=== PATIENT | female | born 1950 | race Caucasian/White ===

== ENCOUNTER 2022-05-25 14:08 | Emergency (ER) | payer MEDICARE, OTHER, SELFPAY ==
[2022-05-25] VITALS (24 sets, daily range): BP systolic 105–125; BP diastolic 74–84; PULSE 81–110; RESP 16–18; TEMP 36.3; O2SAT 93–96; BMI 19.3
--- NOTE | 2022-05-25 14:21 | ED.GENADULT ---
HPI - General Adult General Time Seen by Provider: 14:21 Date Seen: 05/25/22 Chief complaint: Weakness Stated complaint: Post Cardiac Ablation Slow Pulse Light Headed Time Seen by Provider: 05/25/22 14:21 Source: patient and RN notes reviewed Mode of arrival: ambulatory Limitations: no limitations History of Present Illness HPI narrative: Patient is a 71-year-old female coming in feeling lightheaded. She took blood pressures at home today and they were somewhat lower and her pulse was low per her report. At 9:00 a.m. her blood pressure is 110/75, pulse 61 at noon she was 93/72, pulse 75. She was putting groceries away, doing some bending over and felt lightheaded. At the time she also felt short of breath. She has underlying atrial fibrillation and she states they ran out of medications to try to keep her in sinus rhythm. They attempted a cardioversion on May 05. When she returned on the to have an ablation done, she was already back into atrial fibrillation. She has not missed any doses of Eliquis. She has had no chest pain. Dr. Grider did her ablation. On arrival here, she is in sinus tachycardia, just above 100. She is not feeling short of breath or lightheaded at this time. Related Data Home Medications Medication Instructions Recorded Confirmed apixaban 5 mg tablet (Eliquis) mg 05/25/22 dronedarone 400 mg tablet (Multaq) mg 05/25/22 furosemide 20 mg tablet mg 05/25/22 pantoprazole 40 mg tablet,delayed mg PO 05/25/22 release Allergies Allergy/AdvReac Type Severity Reaction Status Date / Time iodine Allergy Verified 05/25/22 14:57 shellfish derived Allergy Verified 05/25/22 14:57 Review of Systems Status of ROS: Reports: 10 or more systems reviewed and unremarkable except as noted in History and below [facility] Medical History (Updated 05/25/22 @ 16:37 by Karlee Donohue MD) Atrial fibrillation status post cardioversion Surgical History (Updated 05/25/22 @ 16:37 by Karlee Donohue MD) S/P ablation of atrial fibrillation Social History Smoking Status: Unknown if ever smoked Do you use any of these nicotine containing products: None How often do you have a drink containing alcohol: never AUDIT-C Alcohol total score: 0 Non-prescribed substance use: denies use service: No Exam Const: Vital Signs, click to edit/add: Vital Signs - 24 hr 05/25/22 14:22 05/25/22 14:20 05/25/22 14:53 Temperature 97.3 F L Pulse Rate Pulse Rate [Pulse Oximeter] 103 H 104 H Respiratory Rate 18 16 Blood Pressure Blood Pressure [Le ft Upper Arm] 125/78 117/80 Pulse Oximetry 95 95 95 Oxygen Delivery Me thod Room Air Room Air 05/25/22 14:22 05/25/22 14:14 05/25/22 14:15 Temperature Pulse Rate 101 H 101 H Pulse Rate [Pulse Oximeter] Respiratory Rate Blood Pressure 125/78 Blood Pressure [Le ft Upper Arm] Pulse Oximetry 94 96 96 Oxygen Delivery Me thod 05/25/22 14:42 05/25/22 14:43 05/25/22 14:45 Temperature Pulse Rate 103 H 110 H Pulse Rate [Pulse Oximeter] Respiratory Rate Blood Pressure 116/74 Blood Pressure [Le ft Upper Arm] Pulse Oximetry 93 94 Oxygen Delivery Me thod 05/25/22 14:52 05/25/22 15:00 05/25/22 15:01 Temperature Pulse Rate 107 H 105 H 105 H Pulse Rate [Pulse Oximeter] Respiratory Rate Blood Pressure 117/80 115/80 Blood Pressure [Le ft Upper Arm] Pulse Oximetry 94 93 94 Oxygen Delivery Me thod 05/25/22 15:15 05/25/22 15:16 Temperature Pulse Rate 105 H 107 H Pulse Rate [Pulse Oximeter] Respiratory Rate Blood Pressure 105/81 Blood Pressure [Le ft Upper Arm] Pulse Oximetry 93 93 Oxygen Delivery Me thod Patient seen shortly after arrival, talking to her her heart rate is right around 100, I ask her she is feeling lightheaded currently in she feels it has resolved some. Documenting provider has reviewed patient's vital signs: yes Common normals: no apparent distress, average body habitus, oriented x3, no limitations, healthy appearing, alert and well nourished General appearance: cooperative, comfortable, well kempt and well developed HENMT: Common normals: normocephalic, head/scalp atraumatic and hearing grossly normal bilaterally Head and scalp: normocephalic and atraumatic Eye: Common normals: PERRL, EOMs intact bilaterally, conjunctivae normal and no scleral icterus Conjunctiva: conjunctiva(e) normal Pupil: PERRL Neck & C-Spine: Common normals: full ROM, no lymphadenopathy, supple, no meningeal signs, no JVD and thyroid normal Thyroid: thyroid normal Resp: Common normals: normal respiratory effort (Sits up easily for me to listen to her lungs.), no retractions, no use of accessory muscles and clear to auscultation bilaterally Auscultation: clear to auscultation bilaterally Cardio: Common normals: no JVD, regular rhythm, S1 normal heart sound, S2 normal heart sound, no gallops, no clicks and no murmurs Rate: tachycardic Rhythm: regular rhythm Heart sounds: S1 normal and S2 normal GI: Common normals: Normal to inspection, nondistended, normoactive bowel sounds present, soft to palpation, non-tender, no hepatosplenomegaly and no masses Palpation: soft and no hepatosplenomegaly Extremity: Other: No pitting edema, calves nontender. Neuro: Common normals: oriented x3, moves all extremities and gait normal Sensorium/orientation: alert Meningeal signs: no meningeal signs Speech: speech normal Psych: Appearance: well kempt Course Course Hospital Course: Patient has not missed any doses of Eliquis, has been on anticoagulants through this whole procedure, thus really am not concerned about any thromboembolic disease. Will have her on cardiac monitoring and pulse oximetry. She is just very mild sinus tachycardia. Will look at baseline labs. Have opted to do a troponin knowing that it still might be somewhat elevated albeit expected to be minimally so after the procedures. These were about 20 days ago. Will get portable chest x-ray but do not appreciate any congestive heart failure clinically. Consultations Consultation #1: Spoke with Dr. Osullivan at [facility] regarding patient's care. He stated 1 thing he would be concerned about would be a pericardial effusion, this is 1 complication that can happen after this procedure. He states it typically happens immediately but if we were comfortable, if we could do a point of care ultrasound. Reviewed with him that I certainly was comfortable doing so. He stated if she was otherwise unchanged, no pericardial effusion, discharged to home and they will contact her via phone call for follow-up tomorrow. Time: 15:26 Vital Signs Vital signs: Initial Vital Signs Pulse Rate 101 H 02/28/23 14:14 Blood Pressure 125/78 05/25/22 14:14 Blood Pressure Mean 93 05/25/22 14:14 Pulse Oximetry 96 05/25/22 14:14 Vital Signs Pulse Rate 101 H 05/25/22 14:14 Blood Pressure 125/78 05/25/22 14:14 Pulse Oximetry 96 05/25/22 14:14 Temperature 97.3 F L 05/25/22 14:22 Pulse Rate 107 H 05/25/22 15:16 Respiratory Rate 16 05/25/22 14:53 Blood Pressure 105/81 05/25/22 15:16 Pulse Oximetry 93 05/25/22 15:16 Oxygen Delivery Method 05/25/22 14:53 Medical Decision Making Lab Data Lab results reviewed: Yes I reviewed the patient's lab results Labs: Lab Results 05/25/22 05/25/22 Range/Units 14:23 14:23 WBC 5.05 (4.50-11.00) K/uL RBC 4.22 (4.00-5.20) m/uL Hgb 12.4 (12.0-16.0) gm/dL Hct 37.7 (33.0-51.0) % MCV 89 (80-100) fL MCH 29 (26-34) pg MCHC 33 (32-36) gm/dL RDW Coeff of Kalina 13.1 (11.5-15.5) % Plt Count 258 (140-440) K/uL Neut % (Auto) 75.1 H (42.0-72.0) % Lymph % (Auto) 16.8 L (20-44) % [place] % (Auto) 6.5 (0.0-11.0) % Eos % (Auto) 1.2 (0.0-7.0) % Baso % (Auto) 0.2 (0.0-3.0) % Neut # (Auto) 3.80 (1.7-7.0) K/uL Lymph # (Auto) 0.80 L (0.90-2.90) K/uL [place] # (Auto) 0.30 (0.00-0.90) K/UL Eos # (Auto) 0.06 (0.00-0.50) K/uL Baso # (Auto) 0.01 (0.00-0.30) K/uL Sodium 137 (135-149) mmol/L Potassium 4.0 (3.6-5.1) mmol/L Chloride 108 (96-114) mmol/L Carbon Dioxide 23 (20-32) mmol/L BUN 19 (7-30) mg/dL Creatinine 1.0 (0.5-1.5) mg/dL Estimated Creat Clear 40.86 Estimated GFR 61 ml/min Glucose 140 H (60-115) mg/dL Calcium 8.5 (8.4-10.6) mg/dL Magnesium 2.0 (1.5-2.6) mg/dL Total Bilirubin 0.6 (0.1-1.5) mg/dL AST 27 (12-35) U/L ALT 19 (4-35) U/L Alkaline Phosphatase 48 (40-150) U/L Troponin I < 0.01 L (0.01-0.04) ng/mL Total Protein 6.0 (6.0-8.3) g/dL Albumin 3.7 (3.3-5.0) g/dL Imaging Data Chest x-ray: Attestation: I have reviewed the pertinent imaging results. My impression: No acute congestive heart failure, cardiomegaly. Radiologist's impression: Patient: KATIE ANAYA Facility:?[facility] Patient ID:?[id number] Site Patient ID:?[id number]. Site :?[id number] Study:?XRay Chest -05/25/2022 2:54:08 PM Ordering Physician:?Charanjit Desir Final Report: INDICATION: [id number]. TECHNIQUE: Chest 1 views. COMPARISON: None. FINDINGS: Cardiovascular and mediastinum: Cardiomegaly. Prominent vasculature. Sternotomy wires. Lungs and pleural spaces: Lungs are clear. No sign of infiltrate or mass. No sign of pleural effusion. No pneumothorax. Bones and soft tissues: No significant findings. IMPRESSION: Cardiomegaly with somewhat water bottle appearance. Consider echocardiogram if pericardial effusion is of concern. Dictated by James Dubon MD @ 05/25/2022 3:35:39 PM (Electronic Signature) ECG Data Attestation: I personally reviewed and interpreted this ECG as follows: (Sinus tachycardia, 103 beats per minute. Incomplete right bundle branch block. PVCs seen. No definitive ischemia, nonspecific T-wave changes.) Prior ECG tracings: not available for review Critical Care Time Critical Care Time Critical Care Time: No Discharge Plan Discharge Clinical Impression: Light-headedness, Status post ablation of atrial fibrillation Condition: Stable Instructions: Lightheadedness (ED) Additional Instructions: Need to stay on current medications. The electrophysiology team should be contacting you tomorrow to do a phone follow-up. In the interim if you should have worsening symptoms, increasing shortness of breath, chest pain, significant change in your heart rate above 110 or below 60, feel like you are going to pass out, please seek re-evaluation. Prescriptions: No Action pantoprazole 40 mg tablet,delayed release (DR/EC) PO furosemide 20 mg tablet Multaq 400 mg tablet Eliquis 5 mg tablet Stand Alone Forms: [facility] Info Instructions Procedures Ultrasound Cardiac exam #1: Anatomical areas examined: parasternal long and parasternal short Indications: other Exam type: limited transthoracic echocardiogram Findings: other (Good contractility, no pericardial effusion seen. Images saved.) Impression: negative exam
--- NOTE | 2022-05-25 14:22 | CRLHL7_ITS ---
For Patients: As a result of the Century Cures Act, medical imaging exams and procedure reports are released immediately into your electronic medical record. You may view this report before your referring provider. If you have questions, please contact your health care provider. INDICATION: [id number]. TECHNIQUE: Chest 1 views. COMPARISON: None. FINDINGS: Cardiovascular and mediastinum: Cardiomegaly. Prominent vasculature. Sternotomy wires. Lungs and pleural spaces: Lungs are clear. No sign of infiltrate or mass. No sign of pleural effusion. No pneumothorax. Bones and soft tissues: No significant findings. IMPRESSION: Cardiomegaly with somewhat water bottle appearance. Consider echocardiogram if pericardial effusion is of concern. Dictated by James Dubon MD @ 05/25/2022 3:35:39 PM (Electronically Signed)
[2022-05-25 14:44] LABS: Basophils Absolute Auto 0.01 K/uL (0.00-0.30); Basophils Percent Auto 0.2 % (0.0-3.0); Eosinophils Absolute Auto 0.06 K/uL (0.00-0.50); Eosinophils Percent Auto 1.2 % (0.0-7.0); Hematocrit 37.7 % (33.0-51.0); Hemoglobin* 12.4 gm/dL (12.0-16.0); Immature Granulocytes Abs Auto 0.01 K/uL (0.00-0.30); Immature Granulocytes Pct Auto 0.2 %; Lymphocytes Percent Auto 16.8 % (20-44); Mean Corpuscular HGB Conc 33 gm/dL (32-36); Mean Corpuscular Hemoglobin 29 pg (26-34); Mean Corpuscular Volume 89 fL (80-100); Monocytes Percent Auto 6.5 % (0.0-11.0); Neutrophils Percent Auto 75.1 % (42.0-72.0); Platelet Count* 258 K/uL (140-440); RDW Coefficient of Variation % 13.1 % (11.5-15.5); Red Blood Count 4.22 m/uL (4.00-5.20); White Blood Count* 5.05 K/uL (4.50-11.00)
--- NOTE | 2022-05-25 14:46 | PC.NURSE ---
pt states she had cardioversion on 05/05, ablation on 05/06 at [facility]. Today was out running errands with and began to feel lightheaded, generalized weakness. Today at 0900 bp 110/75 p61, at 1200 bp 90/72 p 75. Called nurse line and instructed to come into ED for further evaluation. Pt is on Eliquis and baby asa, took this morning. Denies chest pain or shortness of breath.
[2022-05-25 14:47] LABS: Slide Review Reflex No
[2022-05-25 15:13] LABS: Albumin* 3.7 g/dL (3.3-5.0); Chloride* 108 mmol/L (96-114); Sodium* 137 mmol/L (135-149)
[2022-05-25 15:16] LABS: Alkaline Phosphatase* 48 U/L (40-150); Aspartate Amino Transferase* 27 U/L (12-35); Bilirubin Total* 0.6 mg/dL (0.1-1.5); Blood Urea Nitrogen* 19 mg/dL (7-30); Carbon Dioxide* 23 mmol/L (20-32); Est. Creatinine Clearance* 40.86; Estimated Glomerular Filt Rate 61 ml/min; Glucose* 140 mg/dL (60-115)
[2022-05-25 15:17] LABS: Alanine Aminotransferase* 19 U/L (4-35); Calcium* 8.5 mg/dL (8.4-10.6)
[2022-05-25 15:41] LABS: Troponin I* < 0.01 ng/mL (0.01-0.04)
== END 2022-05-25 16:51 | disposition home or self-care (01) ==
PROVIDERS: Emergency Provider Family Medicine; PCP Family Medicine
DX: R42 Dizziness and giddiness (principal); Z98.890 Other specified postprocedural states
CPT/HCPCS: 36415; 71045; 76604; 76705; 80053; 83735; 84484; 85025; 93005; 93308; 94761; 99284; 99285

== ENCOUNTER 2024-01-01 11:32 | Outpatient (CLI) | payer MEDICARE, OTHER, SELFPAY | END 2024-01-01 11:33 | disposition home or self-care (01) | LOC: AMB 01-05 03:41 | PROVIDERS: PCP Family Medicine; Visit Provider Student in an Organized Health Care Education/Training Program | DX: R55 Syncope and collapse (principal) | CPT/HCPCS: A0425; A0427 ==

== ENCOUNTER 2024-01-01 12:00 | Emergency (ER) | payer MEDICARE, OTHER, SELFPAY ==
[2024-01-01] VITALS (30 sets, daily range): BP systolic 109–123; BP diastolic 65–84; PULSE 58–77; RESP 18; TEMP 36.6; O2SAT 93–99; BMI 19.5
--- NOTE | 2024-01-01 12:23 | CRLHL7_ITS ---
For Patients: As a result of the Cures Act, medical imaging exams and procedure reports are released immediately into your electronic medical record. You may view this report before your referring provider. If you have questions, please contact your health care provider. INDICATION: Syncope. Fall. COMPARISON: 05/25/2022 TECHNIQUE: 2 views. FINDINGS: Medical Devices: None. Lung Volumes: Adequate inspiration. No significant atelectasis. Lungs: Clear lungs. Pleura and Pleural spaces: No significant pleural effusion. No pneumothorax. Mediastinum: Unchanged enlarged cardiac silhouette. Differential diagnostic considerations include cardiomegaly and/or pericardial effusion as suggested on the prior exam. Bony Thorax and Soft Tissues: No significant incidental findings. Median sternotomy. IMPRESSION: 1. No acute findings. 2. Unchanged enlarged cardiac silhouette. Differential diagnostic considerations include cardiomegaly and/or pericardial effusion as suggested on the prior exam. Dictated by Elvin Culp MD @ 01/01/2024 1:10:36 PM (Electronically Signed)
--- NOTE | 2024-01-01 12:23 | CRLHL7_ITS ---
For Patients: As a result of the Century Cures Act, medical imaging exams and procedure reports are released immediately into your electronic medical record. You may view this report before your referring provider. If you have questions, please contact your health care provider. INDICATION: Syncope. Fall. COMPARISON: None available. TECHNIQUE: CT of the cervical spine without intravenous contrast. Please note that all CT scans at this facility use dose modulation, iterative reconstruction, and/or weight-based dosing when appropriate to reduce radiation dose to as low as reasonably achievable. FINDINGS: Alignment: Minimal, grade 1, anterolisthesis of C3 on C4 and C4 on C5. No significant spondylolisthesis, widening of the intervertebral disc spaces, interfacetal joints or interspinous distances. Vertebrae: Vertebral bodies, pedicles, laminae, articular, transverse and spinous processes are intact. Moderate disc degeneration at C5-C6. Mild bilateral articular pillar osteoarthrosis. Asymmetrical right uncovertebral osteoarthrosis at C5-C6. Soft Tissues: No perivertebral edema or hemorrhage. Extraspinal Anatomy: No significant findings. IMPRESSION: No acute traumatic injury is identified. Please note that all CT scans at this facility use dose modulation, iterative reconstruction, and/or weight-based dosing when appropriate to reduce radiation dose to as low as reasonably achievable. Dictated by Elvin Culp MD @ 01/01/2024 1:15:32 PM (Electronically Signed)
--- NOTE | 2024-01-01 12:23 | CRLHL7_ITS ---
For Patients: As a result of the Century Cures Act, medical imaging exams and procedure reports are released immediately into your electronic medical record. You may view this report before your referring provider. If you have questions, please contact your health care provider. INDICATION: Syncope. Fall. COMPARISON: None available. TECHNIQUE: CT of the head without intravenous contrast. Please note that all CT scans at this facility use dose modulation, iterative reconstruction, and/or weight-based dosing when appropriate to reduce radiation dose to as low as reasonably achievable. FINDINGS: The brain is normal in attenuation with preserved arellano-white matter differentiation. No hydrocephalus. No mass or mass effect. No intracranial hemorrhage. Intact skull base and cranial vault. Visualized orbits are without significant incidental findings. Visualized paranasal sinuses and mastoid air cells are clear. The anterior nasal septum is deviated rightward. IMPRESSION: No acute traumatic injury is identified. No significant incidental findings. Please note that all CT scans at this facility use dose modulation, iterative reconstruction, and/or weight-based dosing when appropriate to reduce radiation dose to as low as reasonably achievable. Dictated by Elvin Culp MD @ 01/01/2024 1:13:31 PM (Electronically Signed)
--- NOTE | 2024-01-01 12:27 | ED_ITS ---
HPI - Syncope General Date Seen: 01/01/24 Chief Complaint: Syncope/Fainted Stated Complaint: weakness Time Seen by Provider: 01/01/24 12:01 Source: patient Mode of arrival: EMS Limitations: no limitations History of Present Illness HPI narrative: Patient is a 73-year-old female presenting to the emergency department for syncope. She has a history of open-heart surgery to fix a PFO and mitral regurgitation back in 2001. States she was at [employer] today when she was feeling lightheaded with some abdominal discomfort. She got up to go to the bathroom and took a few steps before she fell over and passed out. She was unable to get up in was still feeling lightheaded but felt like she could make it to the bathroom. There she had episode diarrhea and again passed out. She continued to feel lightheaded and other members of the [facility] helped her to the back of the [employer] were EMS picked her up. She states she did not remember fully being helped to the ambulance. She states she is feeling fine now and is currently not having any symptoms. Was not having associated dizziness. Denies chest pain, shortness of breath, weakness. She feels little bit fatigued. No longer has any abdominal discomfort after the diarrhea. Has had previous episodes of fainting but she states this seems different. She is not sure if she hit her head or not. Denies any neck or head pain at this time Related Data Home Medications ?Medication ?Instructions ?Recorded ?Confirmed apixaban 5 mg tablet (Eliquis) mg 05/25/22 dronedarone 400 mg tablet (Multaq) mg 05/25/22 furosemide 20 mg tablet mg 05/25/22 pantoprazole 40 mg tablet,delayed mg PO 05/25/22 release Allergies Allergy/AdvReac Type Severity Reaction Status Date / Time iodine Allergy Verified 05/25/22 14:57 shellfish derived Allergy Verified 05/25/22 14:57 Review of Systems Status of ROS: Reports: 10 or more systems reviewed and unremarkable except as noted in History and below [facility] Medical History Atrial fibrillation status post cardioversion ?I48.91 - Unspecified atrial fibrillation (ICD-10) Surgical History S/P ablation of atrial fibrillation ?Z98.890 - Other specified postprocedural states (ICD-10) ?Z86.79 - Personal history of other diseases of the circulatory system (ICD- 10) Social History Smoking Status: Never smoker Do you use any of these nicotine containing products: None How often do you have a drink containing alcohol: never AUDIT-C Alcohol total score: 0 Non-prescribed substance use: denies use service: No Exam Narrative: Exam Narrative: Const: Well-nourished, Well-developed, in no distress Eyes: PERRL, no conjunctival injection, and symmetrical lids HENT: Atraumatic external nose and ears. Moist mucous membranes. Neck: Symmetric, trachea midline, No thyromegaly. CVS: RRR, No murmurs or gallops. Peripheral pulses 2+ and equal in all extremities RESP: Unlabored respiratory effort. Clear to auscultation bilaterally. GI: Nontender/Nondistended, No rebound or guarding. MSK:Extremities w/o deformity, Normal Active ROM Skin: Warm, Dry. No rashes or lesions. Neuro: Normal Muscle tone, No focal neurological deficits. Psych: Awake, Alert, & Oriented x3. Appropriate mood and affect. Const: Vital Signs, click to edit/add: Vital Signs - 24 hr 01/01/24 12:07 01/01/24 12:09 01/01/24 12:10 Temperature 97.8 F Pulse Rate 65 59 L Pulse Rate [Right Radial] 68 Pulse Rate [orthos tatic lying Left] Pulse Rate [orthos tatic sitting Left ] Pulse Rate [orthos tatic standing] Respiratory Rate Blood Pressure 121/78 Blood Pressure [Le ft Upper Arm] 121/78 Blood Pressure [or thostatic lying Le ft Arm] Blood Pressure [or thostatic sitting Left Arm] Blood Pressure [or thostatic standing Left Arm] Pulse Oximetry 98 97 97 Oxygen Delivery Me thod Room Air 01/01/24 12:15 01/01/24 12:23 01/01/24 12:30 Temperature Pulse Rate 65 58 L Pulse Rate [Right Radial] Pulse Rate [orthos tatic lying Left] 67 Pulse Rate [orthos tatic sitting Left ] 67 Pulse Rate [orthos tatic standing] 71 Respiratory Rate Blood Pressure Blood Pressure [Le ft Upper Arm] Blood Pressure [or thostatic lying Le ft Arm] 113/65 Blood Pressure [or thostatic sitting Left Arm] 114/81 Blood Pressure [or thostatic standing Left Arm] 116/84 Pulse Oximetry 96 96 Oxygen Delivery Me thod 01/01/24 12:52 01/01/24 12:58 01/01/24 13:00 Temperature Pulse Rate 69 67 Pulse Rate [Right Radial] Pulse Rate [orthos tatic lying Left] Pulse Rate [orthos tatic sitting Left ] Pulse Rate [orthos tatic standing] Respiratory Rate 18 Blood Pressure Blood Pressure [Le ft Upper Arm] Blood Pressure [or thostatic lying Le ft Arm] Blood Pressure [or thostatic sitting Left Arm] Blood Pressure [or thostatic standing Left Arm] Pulse Oximetry 99 96 Oxygen Delivery Me thod 01/01/24 13:02 01/01/24 13:04 01/01/24 13:06 Temperature Pulse Rate 68 64 71 Pulse Rate [Right Radial] Pulse Rate [orthos tatic lying Left] Pulse Rate [orthos tatic sitting Left ] Pulse Rate [orthos tatic standing] Respiratory Rate Blood Pressure 109/71 113/65 114/81 Blood Pressure [Le ft Upper Arm] Blood Pressure [or thostatic lying Le ft Arm] Blood Pressure [or thostatic sitting Left Arm] Blood Pressure [or thostatic standing Left Arm] Pulse Oximetry 97 98 98 Oxygen Delivery Ma thod 01/01/24 13:07 01/01/24 13:15 01/01/24 13:30 Temperature Pulse Rate 72 65 65 Pulse Rate [Right Radial] Pulse Rate [orthos tatic lying Left] Pulse Rate [orthos tatic sitting Left ] Pulse Rate [orthos tatic standing] Respiratory Rate Blood Pressure 116/84 Blood Pressure [Le ft Upper Arm] Blood Pressure [or thostatic lying Le ft Arm] Blood Pressure [or thostatic sitting Left Arm] Blood Pressure [or thostatic standing Left Arm] Pulse Oximetry 95 Oxygen Delivery Me thod 01/01/24 13:31 01/01/24 13:45 01/01/24 14:00 Temperature Pulse Rate 69 73 73 Pulse Rate [Right Radial] Pulse Rate [orthos tatic lying Left] Pulse Rate [orthos tatic sitting Left ] Pulse Rate [orthos tatic standing] Respiratory Rate Blood Pressure 117/74 Blood Pressure [Le ft Upper Arm] Blood Pressure [or thostatic lying Le ft Arm] Blood Pressure [or thostatic sitting Left Arm] Blood Pressure [or thostatic standing Left Arm] Pulse Oximetry 97 95 93 Oxygen Delivery Me thod 01/01/24 14:01 Temperature Pulse Rate 72 Pulse Rate [Right Radial] Pulse Rate [orthos tatic lying Left] Pulse Rate [orthos tatic sitting Left ] Pulse Rate [orthos tatic standing] Respiratory Rate Blood Pressure 116/69 Blood Pressure [Le ft Upper Arm] Blood Pressure [or thostatic lying Le ft Arm] Blood Pressure [or thostatic sitting Left Arm] Blood Pressure [or thostatic standing Left Arm] Pulse Oximetry 97 Oxygen Delivery Me thod Course Vital Signs Vital signs: Initial Vital Signs Temperature 97.8 F 01/01/24 12:07 Temperature Source Temporal Artery Scan 01/01/24 12:07 Pulse Rate 68 01/01/24 12:07 Pulse Rhythm Regular 01/01/24 12:07 Blood Pressure 121/78 01/01/24 12:07 Blood Pressure Mean 92 01/01/24 12:07 Pulse Oximetry 98 01/01/24 12:07 Oxygen Delivery Method Room Air 01/01/24 12:07 Vital Signs Temperature 97.8 F 01/01/24 12:07 Pulse Rate 68 01/01/24 12:07 Blood Pressure 121/78 01/01/24 12:07 Pulse Oximetry 98 01/01/24 12:07 Oxygen Delivery Method Room Air 01/01/24 12:07 Temperature 97.8 F 01/01/24 12:07 Pulse Rate 72 01/01/24 14:01 Respiratory Rate 18 01/01/24 12:58 Blood Pressure 116/69 01/01/24 14:01 Pulse Oximetry 97 01/01/24 14:01 Oxygen Delivery Method Room Air 01/01/24 12:07 MDM - Syncope MDM Narrative Medical decision making narrative: Patient is a 73-year-old female presenting for an episode of syncope. Differential is broad and includes vasovagal syncope, mi, PE, electrolyte a bnormality, anemia, other heart abnormalities. Do not hear any signs of an acute valvular issue on my physical exam. Will do an EKG, troponin, COVID/flu, D-dimer, BMP, BNP, chest x-ray, CT scan head and cervical spine. Lab work returned showing no concerning finding. D-dimer within normal limits and PE unlikely. Chest x-ray reviewed myself and radiologist shows no concerning findings. Troponin within normal limits along with BMP, CBC. BNP is only 904. Orthostatic blood pressures were done and showed no concerning findings. I then had nursing staff walk her around department and she had no issues. She does states she started to have some left shoulder pain. Will order an x-ray of this left shoulder now. It returned showing no concerning abnormalities. Repeat troponin within normal limits. She is doing well is safe for discharge. This likely a vasovagal syncope brought on by her abdominal discomfort and diarrhea. She is agreeable to this plan Lab Data Labs: Lab Results 01/01/24 01/01/24 Range/Units 12:20 15:20 WBC 4.23 L (4.50-11.00) K/uL RBC 4.20 (4.00-5.20) m/uL Hgb 12.7 (12.0-16.0) gm/dL Hct 38.4 (33.0-51.0) % MCV 91 (80-100) fL MCH 30 (26-34) pg MCHC 33 (32-36) gm/dL RDW Coeff of Kalina 13.0 (11.5-15.5) % Plt Count 139 L (140-440) K/uL Neut % (Auto) 58.2 (42.0-72.0) % Lymph % (Auto) 26.2 (20-44) % [place] % (Auto) 10.4 (0.0-11.0) % Eos % (Auto) 4.5 (0.0-7.0) % Baso % (Auto) 0.5 (0.0-3.0) % Neut # (Auto) 2.50 (1.7-7.0) K/uL Lymph # (Auto) 1.10 (0.90-2.90) K/uL [place] # (Auto) 0.40 (0.00-0.90) K/UL Eos # (Auto) 0.20 (0.00-0.50) K/uL Baso # (Auto) 0.00 (0.00-0.30) K/uL Abs Immat Gran (auto) 0.00 (0.00-0.30) K/uL Imm/Tot Granulo (auto) 0.2 % D-Dimer Quant (PE/DVT) 0.41 (0.00-0.50) ug/ml Sodium 136 (135-149) mmol/L Potassium 3.9 (3.6-5.1) mmol/L Chloride 106 (96-114) mmol/L Carbon Dioxide 23 (20-32) mmol/L Anion Gap 7 (7-15) mEq/L BUN 19 (7-30) mg/dL Creatinine 1.1 (0.5-1.5) mg/dL Estimated Creat Clear 36.41 Estimated GFR 53 ml/min Glucose 112 (60-115) mg/dL Calcium 8.7 (8.4-10.6) mg/dL Troponin I < 0.01 L (0.01-0.04) ng/mL NT-Pro-B Natriuret Pep 904 pg/mL SARS-CoV-2 (PCR) Negative SARS-CoV-2 (Negative) Influenza Type A (PCR) Negative PCR FLU A (Negative) Influenza Type B (PCR) Negative PCR FLU B (Negative) POC Troponin I 0.01 0.01 (0.01-0.04) ng/ml Imaging Data CT scan head: Attestation: I have reviewed the pertinent imaging results. Radiologist's impression: No acute traumatic injury is identified. No significant incidental findings. Please note that all CT scans at this facility use dose modulation, iterative reconstruction, and/or weight-based dosing when appropriate to reduce radiation dose to as low as reasonably achievable. Dictated by Elvin Culp MD @ 01/01/2024 1:13:[address] scan cervical spine: Attestation: I have reviewed the pertinent imaging results. Radiologist's impression: No acute traumatic injury is identified. Please note that all CT scans at this facility use dose modulation, iterative reconstruction, and/or weight-based dosing when appropriate to reduce radiation dose to as low as reasonably achievable. Dictated by Elvin Culp MD @ 01/01/2024 1:15:32 PM Chest x-ray: Attestation: I have reviewed the pertinent imaging results. Radiologist's impression: 1. No acute findings. 2. Unchanged enlarged cardiac silhouette. Differential diagnostic considerations include cardiomegaly and/or pericardial effusion as suggested on the prior exam. Dictated by Evlin Culp MD @ 01/01/2024 1:10:36 PM Left shoulder x-ray: Attestation: I have reviewed the pertinent imaging results. Radiologist's impression: 1. No acute osseous injuries or abnormalities are noted. Dictated by: Jose Ghosh MD @ 01/01/2024 15:20:21 ECG Data Attestation: I personally reviewed and interpreted this ECG as follows: Interpretation: Sinus rhythm rate of 71 beats per minute with some PACs. Left axis deviation, incomplete right bundle-branch block, no ST or T-wave abnormalities. Appears similar previous EKG on file Discharge Plan Discharge Clinical Impression: Syncope Qualifiers: Syncope type: unspecified Qualified Code(s): R55 - Syncope and collapse Patient Disposition: Home, Self-Care Condition: Improved Instructions: Syncope in Older Adults (ED) Additional Instructions: I believe this was a vasovagal syncope brought on by your abdominal discomfort that has resolved after she went to the bathroom. Return to emergency department for new or worsening symptoms. Prescriptions: No Action pantoprazole 40 mg tablet,delayed release (DR/EC) PO furosemide 20 mg tablet Multaq 400 mg tablet Eliquis 5 mg tablet Follow Up/Referrals: Myranda Case MD [Primary Care Provider] - Stand Alone Forms: [facility] Info Instructions
[2024-01-01 12:32] LABS: Troponin, Point-of-Care* 0.01 ng/ml (0.01-0.04)
[2024-01-01 13:10] LABS: Chloride* 106 mmol/L (96-114)
[2024-01-01 13:11] LABS: Potassium* 3.9 mmol/L (3.6-5.1); Sodium* 136 mmol/L (135-149)
[2024-01-01 13:13] LABS: Anion Gap 7 mEq/L (7-15); Carbon Dioxide* 23 mmol/L (20-32); Creatinine* 1.1 mg/dL (0.5-1.5); Est. Creatinine Clearance* 36.41; Estimated Glomerular Filt Rate 53 ml/min
[2024-01-01 13:14] LABS: Blood Urea Nitrogen* 19 mg/dL (7-30); Calcium* 8.7 mg/dL (8.4-10.6); Glucose* 112 mg/dL (60-115)
[2024-01-01 13:15] LABS: Basophils Percent Auto 0.5 % (0.0-3.0); Eosinophils Percent Auto 4.5 % (0.0-7.0); Hematocrit 38.4 % (33.0-51.0); Hemoglobin* 12.7 gm/dL (12.0-16.0); Immature Granulocytes Pct Auto 0.2 %; Lymphocytes Percent Auto 26.2 % (20-44); Mean Corpuscular HGB Conc 33 gm/dL (32-36); Mean Corpuscular Hemoglobin 30 pg (26-34); Mean Corpuscular Volume 91 fL (80-100); Monocytes Percent Auto 10.4 % (0.0-11.0); Neutrophils Percent Auto 58.2 % (42.0-72.0); Platelet Count* 139 K/uL (140-440); White Blood Count* 4.23 K/uL (4.50-11.00)
[2024-01-01 13:18] LABS: PCR FLU A Negative PCR FLU A (Negative); PCR FLU B Negative PCR FLU B (Negative); SARS PCR* Negative SARS-CoV-2 (Negative)
[2024-01-01 13:27] LABS: NT Pro B Type NatriureticPept* 904 pg/mL; Slide Review Reflex No; Troponin I* < 0.01 ng/mL (0.01-0.04)
[2024-01-01 13:30] LABS: D Dimer Quantitative* 0.41 ug/ml (0.00-0.50)
--- NOTE | 2024-01-01 14:27 | CRLHL7_ITS ---
For Patients: As a result of the Cures Act, medical imaging exams and procedure reports are released immediately into your electronic medical record. You may view this report before your referring provider. If you have questions, please contact your health care provider. INDICATION: Shoulder pain after fall, injury TECHNIQUE: Shoulder radiograph 3 views left COMPARISON: None FINDINGS: Bone: No acute fractures or aggressive bone lesions are identified. Severe diffuse osteopenia is noted. Joint: The glenohumeral joint is unremarkable. The acromioclavicular joint is unremarkable. Soft tissue: Unremarkable. The visualized hemithorax is unremarkable in appearance. No radiopaque foreign bodies are seen. IMPRESSION: 1. No acute osseous injuries or abnormalities are noted. Dictated by: Jose Ghosh MD @ 01/01/2024 15:20:21 (Electronically Signed)
[2024-01-01 15:30] LABS: Troponin, Point-of-Care* 0.01 ng/ml (0.01-0.04)
== END 2024-01-01 15:57 | disposition home or self-care (01) ==
PROVIDERS: Emergency Provider Student in an Organized Health Care Education/Training Program; PCP Family Medicine
DX: R55 Syncope and collapse (principal)
CPT/HCPCS: 36415; 70450; 71046; 72125; 73030; 80048; 83880; 84484; 85025; 85379; 87631; 93005; 99283; 99284; 99285

== ENCOUNTER 2024-02-24 11:27 | Emergency (ER) | payer MEDICARE, OTHER, SELFPAY ==
[2024-02-24] VITALS (7 sets, daily range): BP systolic 107–117; BP diastolic 74–89; PULSE 81–108; RESP 18; TEMP 36.7; O2SAT 94–97; BMI 20.1
--- OUTSIDE RECORDS SUMMARY | 2024-02-24 12:01 | XMS_ITS | Clinical Summary ---
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 Cynthia Kovacs RN .................... 02/26/2016 10:52 AM Shellfish Containing Products Rash,Nausea And Vomiting 11/15/2006 Medications Medication Sig Dispensed Refills Start Date End Date Status cholecalciferol (VITAMIN D3) 1,000 unit capsule Take 2,000 units by mouth once daily. 0 12/05/2012 Active aspirin (ECOTRIN) 81 mg enteric coated tabletIndications:Pers istent atrial fibrillation (HC) Take 1 Tablet (81 mg) by mouth once daily with a meal. 0 04/27/2022 Active dronedarone (MULTAQ) 400 mg tab tabletIndications:Hype rthyroidism,Atrial fibrillation status post cardioversion (HC) Take 1 Tablet (400 mg) by mouth two times daily with meals. 180 Tablet 3 08/15/2023 Active apixaban (ELIQUIS) 5 mg tabletIndications:Pers istent atrial fibrillation (HC) Take 1 Tablet (5 mg) by mouth two times daily. DO NOT take on morning of 05/06/22 180 Tablet 4 09/20/2023 Active rosuvastatin (CRESTOR) 5 mg tabletIndications:Paro xysmal atrial fibrillation (HC) Take 1 Tablet (5 mg) by mouth at bedtime. 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 She has always been tipsy/off-balance, length of time symptoms last varies Diverticulosis of colon (without mention of hemo rrhage) 09/17/2009 Overview (09/17/2009): Colonoscopy 08/2009 diverticulosis repeat in 10 years Subjective tinnitus 08/11/2007 Enthesopathy of ankle and tarsus, unspecified Mitral valve disorders 11/14/2006 Overview (09/23/2020): NEEDS SBE prophylaxix (reviewed with cardiology 07/03) - s/p Mitral valve replacement with 32 mm [employer] annuloplasty ring, closure Patent foramen ovale 2001 - - echo 01/04/2020: mitral valve is repaired with an annuloplasty ring, mild mitral regurgitation. The mean diastolic gradient is <2 mmHg at a HR of 58 bpm. Tachycardia, unspecified Overview (07/22/2014): Repeat echocardiogram 2016 Resolved Problems Problem Noted Date Diagnosed Date Resolved Date Mixed hearing loss, unilateral 09/08/2011 09/08/2011 Unspecified conductive hearing loss 10/17/2009 09/08/2011 Overview (10/17/2009): Right ear-per 2001 ENT note patient may have otosclerosis Distal radial fracture 07/09/200908/22 Sensorineural hearing loss, unspecified 01/13/2007 10/17/2009 Encounters Date Type Department Care Team Description 02/24/2024 3:20 PM CROTCH PIECE BASTER [facility] [address] [place] [address] Alfreda Bender PA Heart Problem 02/24/2024 Travel 02/24/2024 Nurse Triage [facility] [address] [place] [address] Myranda Case MD Palpitations; Blood Pressure 02/22/2024 1:45 PM CROTCH PIECE BASTER [facility] [address] [place] [address] Segundo Connor DPM Consult (Right bunion pain and balance concerns) 02/22/2024 Travel 02/21/2024 Telephone [facility] [address] [place] [address] Myranda Case MD Referral 02/17/2024 Travel 02/01/2024 Telephone [facility] [address] [place] [address] Myranda Case MD Referral 02/01/2024 Telephone [facility] [address] [address] Rasta Ramsey MD Follow Up (Multaq coverage) 01/31/2024 Telephone [facility] [address] [address] Rasta Ramsey MD Concerns 01/25/2024 9:00 AM CDT Ancillary Procedure [facility] [address] [place] [address] 01/24/2024 8:40 AM CDT Office [facility] [address] [place] [address] Myranda Case MD Medicare ANNUAL (subsequent) Visit (73 yo female) 01/24/2024 Travel 01/19/2024 Travel 01/16/2024 Telephone [facility] [address] [address] Rasta Ramsey MD Follow Up; Medication Management 01/06/2024 9:35 AM CDT Nurse/Clinic Staff Only [facility] [address] [place] [address] Immunization/Inject ion; Immunization/Inject ion (COVID-19 vaccine) 01/06/2024 Travel 01/03/2024 Telephone [facility] [address] [address] Rasta Ramsey MD Medication Management (Multaq-formulary exception.) 01/02/2024 Travel 01/01/2024 Orders Only [facility] Scanner 1 scan: (1-Ord) [place], XR SHOULDER LT MIN 2V, 01/01/2024 01/01/2024 Orders Only [facility] Scanner 1 scan: (1-Ord) [facility], CERVICAL SPINE WO CON, 01/01/2024 01/01/2024 Orders Only [facility] Scanner 1 scan: (1-Ord) [facility], HEAD / BRAIN W/O CONTRAST, 01/01/2024 01/01/2024 Orders Only [facility] Scanner 1 scan: (1-Ord) [facility], XR CHEST 2V, 01/01/2024 12/29/2023 9:00 AM CDT [facility] [address] [place] [address] Keith Martinez, AuD Hearing Aid 12/29/2023 8:00 AM CDT Office Visit [facility] [address] [place] [address] Keith Martinez, Desire Hearing Problem 12/29/2023 Travel 12/26/2023 Travel 11/24/2023 Telephone [facility] [address] [place] [address] Myranda Case MD Referral (Audiology, yearly hearing test) from Last 3 Months Immunizations Name Administration Dates Next Due Amb Influenza, Inactivated A IIV4 (Age 65+ Years) Preserv Free 12/19/2019 COVID-19 VACCINE SPIKEVAX (M ODERNA 50MCG/0.5ML) 12YO+ PFS 01/06/2024,09/22/2023,04/28/2023 COVID-19 vaccine (Pfizer-Bio NTech 30mcg/0.3mL) 12YO+ BIVALENT PF, MDV 12/29/2022,07/22/2022,12/23/2021 COVID-19 vaccine (Pfizer-Bio NTech 30mcg/0.3mL) 12YO+ CARLOS-SUCROSE PF, MDV 07/10/2021 COVID-19 vaccine (Pfizer-Bio NTech 30mcg/0.3mL) PF, MDV 01/02/2021,06/22/2020,06/01/2020 Influenza A (H1N1), Inactivated 03/14/2009 Influenza A (H1N1), Inactiva benjy (Age >=3 Years) 03/14/2009 Influenza, High-dose Quadriv alent Inactivated 12/29/2022 Influenza, IIV3 (Age >=3 years) 12/06/19 13,01/26/2009,02/02/2007,01/29,01/29/2005,02/02/2003 Influenza, Inactivated AIIV4 (Age 65+ Years) Preserv Free 12/23/2021,12/08/2020 Influenza, Inactivated IIV3 (Age 65+ Years) Preserv Free 01/06/2024 Pneumococcal Poly,23-Valent (Pneumovax) 10/05/2018,01/19/2002 Pneumococcal conj 13-Valent (Prevnar 13) 09/06/2016 RSV, Recombinant ADJ Reconst ituted (Arexvy 120MCG/0.5mL) 01/19/2023 Td (Age >=7 Years) 10/17/2001 Tdap 10/30/2020,10/29/2010 Zoster (Shingrix-RZV, recombinant) 03/19/2019, Zoster (Zostavax-ZVL, live) 11/10/2010 Family History Medical History Relation Name Comments Aneurysm Brother 1 jacob Arthritis Brother 1 jacob Asthma Brother 1 jacob severe Cancer Brother 1 jacob early stage mary lou dder ca Crohn's disease Brother 1 jacob Maybe workin g on dx Diverticulitis Brother 1 jacob partial colec stewart GI Disease Brother 1 jacob second to stero ids Hypertension Brother 1 jacob secondary to st eroids Other Brother 1 jacob liver cysts, di verticulitis Other cancer Brother 1 jacob vitamin B def Hypertension Brother 2 Dominick Good Health Daughter Heart Disease Father mitral valve Diabetes Maternal Grandfather Allergies Mother Asthma Mother Atrial fibrillation Mother at age 9 5 Cancer Mother hysterectomy fo r cervical/Skin cancer Other Mother freq uti's Skin cancer Mother Genetic Other Her family hist ory is notable for her father who had mitral valve prolapse and developed atrial fibrillation and mitral valve rupture requiring valve replacement. He of heart failure five years later. Mother had cancer of the uterus. Allergies Sister Tana Arthritis Sister Tana Asthma Sister Tana RIGO disease Sister Tana Other Sister Tana vit B def, marble ceiling installer sarahy lyme Sleep apnea Sister Tana Good Health Son Cancer-breast No Family History Cancer-ovarian No Family History Relation Name Status Comments Brother 1 jacob Brother 2 Dominick Daughter Alive Father Maternal Grandfather Mother Alive Other Sister Tana Alive Son Alive Social History Tobacco Use Types Packs/Day Years Used Date Smoking Tobacco: Never Smokeless Tobacco: Never Tobacco Cessation:Counseling Given: Yes Alcohol Use Standard Drinks/Week Comments Not Currently 0 (1 standard drink = 0.6 oz pur e alcohol) none PHQ-2 Answer Date Recorded PHQ-2 TOTAL SCORE 0 01/24/2024 Social Connections Answer Date Recorded Do you often feel lonely or isolated from those around you? 0 10/25/2023 Financial Resource Strain Answer Date R ecorded Difficulty of Paying Living Expenses 3 10/25/2023 Difficulty of Paying Living Expenses Not on file 10/25/2023 Food Insecurity Answer Date Recorded Do you worry your food will run out before you are able to buy more? 1 10/25/2023 Transportation Needs Answer Date Record ed Does lack of transportation keep you from medica l appointments? 1 10/25/2023 Does lack of transportation keep you from work, meetings or getting things that you need? 1 10/25/2023 Housing Stability Answer Date Recorded What is your housing situation today? 1 10/25/2023 Sex and Gender Information Value Date Recorded Sex Assigned at Not on file Gender Identity Not on file Sexual Orientation Not on file Travel History Travel Start Travel End [place] 02/07/2024 02/11/2024 Obstetrics History Para Term AB IAB SAB Ectopic Multiple Livin g Live Births 3 2 2 2 Date Outcome GA Total Labor Labor/2nd/3rd Weight Sex Type Anes PTL Jessica A1 A5 Name Clin Term Term Last Filed Vital Signs Vital Sign Reading Time Taken Comments Blood Pressure 124/84 02/24/2024 10:45 AM CROTCH PIECE BASTER Pulse 63 02/24/2024 10:45 AM CROTCH PIECE BASTER Temperature 36.6 C (97.9 F) 02/24/2024 10:45 AM CROTCH PIECE BASTER Respiratory Rate 16 06/30/2023 11:14 AM CDT Oxygen Saturation 98% 02/24/2024 10:45 AM CROTCH PIECE BASTER Inhaled Oxygen Concentration - - Weight 50.1 kg (110 lb 6.4 oz) 02/24/2024 10:45 AM CROTCH PIECE BASTER Height 158.8 cm (5' 2.5) 01/24/2024 8:44 AM CDT Body Mass Index 19.87 01/24/2024 8:44 AM CDT Plan of Treatment Upcoming Encounters Date Type Department Care Team (Late st Contact Info) Description 02/24/2024 3:20 PM CROT[employer] PIECE BASTER [facility] [address] [place] [address] Alfreda Bender PA [address] [place] [address] Heart Problem 03/19/2024 11:00 AM CROTCH PIECE BASTER Office Visit [facility] [address] [facility] [address] [place] [address] [place] [address] [facility] [place] [address] 04/25/2024 10:00 AM CROTCH PIECE BASTER Office Visit [facility] [address] [place] [address] Papa Harley MD [address] [facility] [address] [place] [address] 08/13/2024 11:00 AM CDT Office Visit [facility] [address] [facility] [address] [place] [phone] Rasta Ramsey MD [address] [facility] [address] [place] [address] Health Maintenance Due Date Last Done Comments Mammogram for age 45-75 11/13/2024 11/14/19, 11/12/2022, 11/11/2021, Additional history exists BMI (ht and wt on same day) for age 18+ 01/23/2025 01/24/2024, 08/15/2023, 01/18/2023, Additional history exists Depression screening for age 12+ 01/24/2025 01/25/2024, 01/24/2024, 01/18/2023, Additional history exists Medicare Wellness for age 65+ 01/24/20254, 01/18/2023, 01/11/2022, Additional history exists Fecal testing sDNA-FIT ([place] guard) for age 45-75 02/01/2027 02/02/2024 Lipids for age 45-75 01/23/2029 01/24/2024, 10/26/2022, 01/11/2022, Additional history exists Tetanus booster 10/30/2030 10/30/2020, 2010, 10/17/2001 Hepatitis C screening for ag e 18-79 Completed 07/22/2014 Pneumococcal series for age 65+ Completed 10/05/2018, 09/06/2016, 01/19/2002 Zoster (shingles) series for age 50+ Completed 03/19/2019, 10/05/2018, 11/10/2010 Tdap Completed 10/30/2020, 10/29/2010 COVID-19 vaccine series Completed 01/06/20 24, 09/22/2023, 04/28/2023, Additional history exists Influenza for age 65+ Completed 01/06/2024 , 12/29/2022, 12/23/2021, Additional history exists DEXA/DXA scan for age 65+ Completed 2023, 11/03/2017, 10/31/2012, Additional history exists Procedures Procedure Name Priority Date/Time Associated Diagnosis Comments SDNA-FIT EXTERNAL (COLOGUARD) Routine 02/02/2024 6:30 AM CROTCH PIECE BASTER Screening for colon cancer XR DXA BONE DENSITY 2 SITES AXIAL Routine 01/25/2024 9:07 AM CDT Post-menopausal LIPID PANEL W REFLEX MEASURED LDL Routine 01/24/2024 9:58 AM CDT Lipid screening SCAN-RADIOLOGY REPORT 01/01/2024 12:00 AM CDT SCAN-CT INTERPRETATION 12:00 AM CDT SCAN-CT INTERPRETATION 12:00 AM CDT SCAN-RADIOLOGY REPORT 01/01/2024 12:00 AM CDT XR MAMMO NASH BILAT SCREEN Routine 11/14/2023 7:38 AM CDT Visit for screening mammogram ANTI HCV Routine 07/22/2014 10:21 AM CDT Need for hepatitis C screening test from Last 3 Months or Most Recently Relevant to Health Maintenance Results * SDNA-FIT EXTERNAL (COLOGUARD) (02/02/2024 6:30 AM CROTCH PIECE BASTER) NONINV COLON CA DNA+OCC BLD SCRN STL-IMP Negative Negative 02/09/2024 11:32 PM CROTCH PIECE BASTER [employer] (CLIA #:[id number]) Comment: NEGATIVE TEST RESULT. A negative Cologuard result indicates a low likelihood that a colorectal cancer (CRC) or advanced adenoma (adenomatous polyps with more advanced pre-malignant features) is present. The chance that a person with a negative Cologuard test has a colorectal cancer is less than 1 in 1500 (negative predictive value >99.9%) or has an advanced adenoma is less than 5.3% (negative predictive value 94.7%). These data are based on a prospective cross-sectional study of 10,000 individuals at average risk for colorectal cancer who were screened with both Cologuard and colonoscopy. (Carlos Mayo al, N Engl J Med 2014;370(14):4279-8422) The normal value (reference range) for this assay is negative. COLOGUARD RE-SCREENING RECOMMENDATION: Periodic colorectal cancer screening is an important part of preventive healthcare for asymptomatic individuals at average risk for colorectal cancer. Following a negative Cologuard result, the [place] [employer] Society and U.S. Multi-Society Task Force screening guidelines recommend a Cologuard re-screening interval of 3 years. References: [place] [employer] Guideline for Colorectal Cancer Screening: https://www.cancer.org/cancer/rmyux-ekophr-siqnis/amigklsbr-bofmxfotl-ebapttb/ac s-rec ommendations.html.; Claudio OGDEN, Marifer PECK, Kathie RICHARD, Colorectal Cancer Screening: Recommendations for Physicians and Patients from the U.S. Multi-Society Task Force on Colorectal Cancer Screening , Am J Gastroenterology 2017; 112:3159-9977. TEST DESCRIPTION: Composite algorithmic analysis of stool DNA-biomarkers with hemoglobin immunoassay. Quantitative values of individual biomarkers are not reportable and are not associated with individual biomarker result reference ranges. Cologuard is intended for colorectal cancer screening of adults of either sex, 45 years or older, who are at average-risk for colorectal cancer (CRC). Cologuard has been approved for use by the U.S. FDA. The performance of Cologuard was established in a cross sectional study of average-risk adults aged 50-84. Cologuard performance in patients ages 45 to 49 years was estimated by sub-group analysis of near-age groups. Colonoscopies performed for a positive result may find as the most clinically significant lesion: colorectal cancer [4.0%], advanced adenoma (including sessile serrated polyps greater than or equal to 1cm diameter) [20%] or non- advanced adenoma [31%]; or no colorectal neoplasia [45%]. These estimates are derived from a prospective cross-sectional screening study of 10,000 individuals at average risk for colorectal cancer who were screened with both Cologuard and colonoscopy. (Carlos Cook et al, N Engl J Med 2014;370(14):5848-7123.) Cologuard may produce a false negative or false positive result (no colorectal cancer or precancerous polyp present at colonoscopy follow up). A negative Cologuard test result does not guarantee the absence of CRC or advanced adenoma (pre-cancer). The current Cologuard screening interval is every 3 years. ([place] [employer] Society and U.S. Multi-Society Task Force). Cologuard performance data in a 10,000 patient pivotal study using colonoscopy as the reference method can be accessed at the following location: www.[employer]/results. Additional description of the Cologuard test process, warnings and precautions can be found at www.[employer].com. Stool specimen (specimen) (Rectum) 02/02/2024 6:30 AM CROTCH PIECE BASTER 02/04/2024 12:24 PM CROTCH PIECE BASTER Myranda Case MD URINE [employer] (CLIA #:[id number]) [place] [address], * (ABNORMAL) XR DXA BONE DENSITY 2 SITES AXIAL (01/25/2024 9:07 AM CDT) Anatomical Region Laterality Modality Spine, HIPS, HIPL, HIPR Other Impressions 01/31/2024 2:02 PM CROTCH PIECE BASTER Osteopenia. RECOMMENDATIONS: The National Osteoporosis Foundation recommends pharmacologic treatment for patients with T-scores of -2.5 or less, patients with prior history of fragility fractures, or patients with 10-year probability of greater than 3% at hips or greater than 20% of suffering major osteoporotic fractures. Recommend continued optimization of calcium and vitamin D intake through dietary means and/or supplementation and regular exercise. Consider pharmacologic therapy for osteopenia with increased fracture risk. Follow-up bone density reading in 2 years if therapy initiated to assess therapeutic efficacy. Essie Mayer PA-C [facility] 01/31/2024 Narrative 01/31/2024 2:02 PM CROTCH PIECE BASTER For Patients: Results are automatically released to your [facility] account once available, in compliance with federal regulations. This means that you may see your results before your provider has had a chance to review them. Please allow 2-3 business days for your provider to comment on the results. XR DXA Bone Mineral Density (BMD) EXAM LOCATION: [address] [address] PATIENT NAME: Adela Holbrook DATE OF : 1950 EXAM DATE: 01/25/2024 REQUESTING PROVIDER: Myranda Case MD GENDER AT : female HEIGHT: 5' 2.5 (01/24/2024) WEIGHT: 110 lb (01/24/2024) MENOPAUSAL STATUS: Postmenopausal RACE/ETHNICITY: White RISK FACTORS: Family History of Osteoporosis, Weight < 127 lbs., and White Race CURRENT MEDICATION FOR BONE LOSS: NONE INDICATION: Post-Menopause COMPARISON DATE(S): 2018 DXA scans are compared to prior studies for a patient only when the two (or more) studies were performed on the same scanner. It is not possible to compare data generated on one scanner to data from another because there are not standards in DXA equipment. This applies even if the two scanners are made by the same boat dispatcher. PROCEDURE: Dual-energy x-ray absorptiometry performed with routine technique. Reporting is completed in the form of a T-score. The T-score represents the standard deviation from peak bone mass based on young healthy adult. A Z-score is used for diagnosis in premenopausal women, and for men under the age of 50. FINDINGS: RESULT LUMBAR SPINE L1 - L4 BMD: 1.006 g/cm2 T-Score: - 1.5 Z-Score: + 0.7 Change from prior in 2018: Decrease 7.9%. RESULTS FEMUR Left femoral neck BMD: 0.781 g/cm2 T-Score: - 1.8 Z-Score: + 0.3 Change from prior in 2018: Decrease 12.8%. Right femoral neck BMD: 0.736 g/cm2 T-Score: - 2.2 Z-Score: + 0.0 Change from prior in 2018: Decrease 12.2%. Left hip BMD: 0.858 g/cm2 T-Score: - 1.2 Z-Score: + 0.8 Change from prior in 2018: Decrease 10.5%. Right hip BMD: 0.811 g/cm2 T-Score: - 1.6 Z-Score: + 0.4 Change from prior in 2018: Decrease 9.0%. WHO criteria: Normal: T-score at or above -1 SD Osteopenia: T-score between -1.1 and -2.4 SD Osteoporosis: T-score at or below -2.5 SD FRAX RISK CALCULATION (USED FOR OSTEOPENIA ONLY): 10-year probability of major osteoporotic fracture: 11.9%. 10-year probability of hip fracture: 3.1%. Myranda Case MD DEXA * LIPID PANEL W REFLEX MEASURED LDL (01/24/2024 9:58 AM CDT) [facility] CHOLESTEROL, TOTAL 134 <200 mg/dL [facility] HDL CHOLESTEROL 77 > OR = 50 mg/dL [facility] TRIGLYCERIDES 77 <150 mg/dL [facility] LDL-CHOLESTEROL 41 mg/dL (calc) [facility] Comment: Reference range: <100 Desirable range <100 mg/dL for primary prevention; <70 mg/dL for patients with CHD or diabetic patients with > or = 2 CHD risk factors. LDL-C is now calculated using the [place] calculation, which is a validated novel method providing better accuracy than the Friedewald equation in the estimation of LDL-C. Serafin BARNHART et al. JEROMY. 2013;310(19): 3809-8577 (http://education.[employer]/faq/ZMH566) CHOL/HDLC RATIO 1.7 <5.0 (calc) [facility] NON HDL CHOLESTEROL 57 <130 mg/dL (calc) [facility] Comment: For patients with diabetes plus 1 major ASCVD risk factor, treating to a non-HDL-C goal of <100 mg/dL (LDL-C of <70 mg/dL) is considered a therapeutic option. Blood BLOOD SPECIMEN / Unknown 01/24/2024 9:58 AM CDT 01/24/2024 9:58 AM CDT Myranda Case MD CHEMISTRY [facility] [address] [place] [address], [facility] [address] [place] [address] * SCAN-RADIOLOGY REPORT (01/01/2024 12:00 AM CDT) Only the most recent of2 resultswithin the time period is included. Anatomical Region Laterality Modality Other Scanner OTHER * SCAN-CT INTERPRETATION (01/01/2024 12:00 AM CDT) Only the most recent of2 resultswithin the time period is included. Anatomical Region Laterality Modality Other Scanner OTHER * XR MAMMO NASH BILAT SCREEN (11/14/2023 7:38 AM CDT) Anatomical Region Laterality Modality BREASTS, Breast Left, Breast Right Bilateral Mammography Impressions 11/14/2023 1:56 PM CDT There is no radiographic evidence for malignancy. Recommend annual mammograms. MAMMOGRAM ASSESSMENT: ACR 1 Negative PATIENTS: You will also receive a letter with your examination results in an easy to read format. If you have questions about your results, please contact your referring provider. Narrative 11/14/2023 1:56 PM CDT For Patients: As a result of the Cures Act, medical imaging exams and procedure reports are released immediately into your electronic medical record. You may view this report before your referring provider. If you have questions, please contact your health care provider. XR MAMMO NASH BILAT SCREEN [[id number]] CLINICAL HISTORY: This is an asymptomatic 73 y.o. patient. INDICATION FOR EXAM: Mammogram Screening. TECHNIQUE: CC & MLO views were obtained. This study was evaluated with the assistance of Computer-Aided Detection. Breast Tomosynthesis was used in interpretation. COMPARISON FILM: Yes [facility]21 [facility] FINDINGS: There are scattered areas of fibroglandular density. There are no dominant masses, suspicious micro calcifications or areas of architectural distortion. Myranda Case MD MAMMO * ANTI HCV [[id number]] (07/22/2014 10:21 AM CDT) HEPATITIS C ANTIBODY Non-Reacti ve Non-Reacti ve 07/22/2014 4:44 PM CDT [facility] Blood specimen (specimen) BLOOD SPECIMEN / Unknown Venipuncture / Unknown 07/22/2014 10:21 AM CDT 07/22/2014 10:21 AM CDT Narrative [facility] - 07/22/2014 4:44 PM CDT Antibodies to HCV not detected; does not exclude the possibility of exposure to HCV. Myranda Case MD SEND OUTS [facility] [address] [place] [address], [place] from Last 3 Months or Most Recently Relevant to Health Maintenance Advance Directives Documents on File Type Date Recorded Patient Transcription Typist Expl anation Healthcare Directive 04/29/2022 023 * Full Code (Latest Code Status on File) Date Activated Date Inactivated Comments 05/06/2022 11:37 AM 05/08/2022 11:30 AM Question Answer Comments Code Status Discussion: Other (specify in commen ts): * Full Code Date Activated Date Inactivated Comments 05/05/2022 11:29 AM 05/05/2022 3:04 PM Question Answer Comments Code Status Discussion: Reviewed Preferences * Full Code Date Activated Date Inactivated Comments 01/22/2022 12:29 PM 01/22/2022 3:48 PM Question Answer Comments Code Status Discussion: Reviewed Preferences * Full Code Date Activated Date Inactivated Comments 11/19/2019 9:30 AM 11/20/2019 7:53 PM Question Answer Comments Code Status Discussion: Discussed Care Teams Nuclear Reactor Engineer Relationship Specialty Start Date End Date Myranda Case MD [address] [place] [address] PCP - General 08/19/05 Sage Hutchinson MD [address] [place] [address] Cardiology Cardiovascular Disease 08/31/11 Zachary Paz MD [address] [place] [id number] Otolaryngology Surgery - Otolaryngology 02/15/13 Rasta Ramsey MD [address] [place] [address] Cardiovascular Disease 11/04/21 Papa Harley MD [address] [place] [id number] Cardiovascular Disease 01/11/22
--- NOTE | 2024-02-24 12:15 | ED.ARRPALP ---
HPI - Arrhythmia/Palpitations General Date Seen: 02/24/24 Chief Complaint: Arrhythmia/Palpitations Stated Complaint: Irregular Heartbeat Time Seen by Provider: 02/24/24 11:37 Source: patient Mode of arrival: ambulatory Limitations: no limitations History of Present Illness HPI narrative: Patient is a 73-year-old female with a history of MVR in 2001 and an ablation for AFib in 2021 to presenting to the emergency department for palpitations. She was seen in this emergency department 2 months ago for syncopal episode. She was discharged home with no abnormalities seen. She was been asymptomatic since then until this past Tuesday where she had similar episode again at [facility]. She felt like she was going to pass out again but this time instead of getting up she laid down on the pew and symptoms eventually resolved. She saw her primary care provider on Tuesday and was told she would be getting a Zio patch. Since Tuesday she has had intermittent episodes of lightheadedness. She was not feeling well yesterday she states. Today though she was feeling lightheaded again and noted her blood pressure was lower than normal and she felt like her heart was fluttering. She went to her clinic were EKGs were done she was told to come to the emergency department. She denies chest pain, shortness of breath, weakness, numbness, dizziness, vision changes, headache. States she is feeling asymptomatic right now. She does wear an Apple watch in states her heart rate over the past week has ranged between 40 and 139. She does see the [facility] to but has not had appointment with them since July. Related Data Home Medications ?Medication ?Instructions ?Recorded ?Confirmed apixaban 5 mg tablet (Eliquis) mg 05/25/22 dronedarone 400 mg tablet (Multaq) mg 05/25/22 aspirin 81 mg chewable tablet 81 mg PO DAILY 02/24/24 02/24/24 (Aspirin Childrens) cholecalciferol (vitamin D3) 50 50 mcg PO DAILY 02/24/24 02/24/24 mcg (2,000 unit) capsule rosuvastatin 5 mg tablet 5 mg PO DAILY 02/24/24 02/24/24 Previous Rx's ?Medication ?Instructions ?Recorded metoprolol succinate 50 mg 50 mg PO DAILY #30 tabs 02/24/24 tablet,extended release 24 hr (Toprol XL) Allergies Allergy/AdvReac Type Severity Reaction Status Date / Time iodine Allergy Verified 02/24/24 11:40 shellfish derived Allergy Verified 02/24/24 11:40 Review of Systems Status of ROS: Reports: 10 or more systems reviewed and unremarkable except as noted in History and below PFSH [facility] Medical History Atrial fibrillation status post cardioversion ?I48.91 - Unspecified atrial fibrillation (ICD-10) Surgical History S/P ablation of atrial fibrillation ?Z98.890 - Other specified postprocedural states (ICD-10) ?Z86.79 - Personal history of other diseases of the circulatory system (ICD-10) Social History Smoking Status: Never smoker Do you use any of these nicotine containing products: None How often do you have a drink containing alcohol: never AUDIT-C Alcohol total score: 0 Non-prescribed substance use: denies use service: No Exam Narrative: Exam Narrative: Const: Well-nourished, Well-developed, in no distress Eyes: PERRL, no conjunctival injection, and symmetrical lids HENT: Atraumatic external nose and ears. Moist mucous membranes. Neck: Symmetric, trachea midline, No thyromegaly. CVS: RRR, No murmurs or gallops. Peripheral pulses 2+ and equal in all extremities RESP: Unlabored respiratory effort. Clear to auscultation bilaterally. GI: Nontender/Nondistended, No rebound or guarding. MSK:Extremities w/o deformity, Normal Active ROM Skin: Warm, Dry. No rashes or lesions. Neuro: Normal Muscle tone, No focal neurological deficits. Psych: Awake, Alert, & Oriented x3. Appropriate mood and affect. Const: Vital Signs, click to edit/add: Vital Signs - 24 hr 02/24/24 11:33 02/24/24 12:19 02/24/24 12:20 Temperature 98.0 F Pulse Rate 81 90 Pulse Rate [Right Pulse Oximeter] 108 H Respiratory Rate 18 Blood Pressure 113/83 Blood Pressure [Ri ght Upper Arm] 110/74 Pulse Oximetry 97 96 97 Oxygen Delivery Me thod Room Air 02/24/24 12:30 02/24/24 12:31 02/24/24 12:32 Temperature Pulse Rate 87 97 92 Pulse Rate [Right Pulse Oximeter] Respiratory Rate Blood Pressure 117/85 107/89 Blood Pressure [Ri ght Upper Arm] Pulse Oximetry 95 95 94 Oxygen Delivery Me thod 02/24/24 12:45 Temperature Pulse Rate 91 Pulse Rate [Right Pulse Oximeter] Respiratory Rate Blood Pressure Blood Pressure [Ri ght Upper Arm] Pulse Oximetry 96 Oxygen Delivery Me thod Course Vital Signs Vital signs: Initial Vital Signs Temperature 98.0 F 02/24/24 11:33 Temperature Source Temporal Artery Scan 02/24/24 11:33 Pulse Rate 108 H 02/24/24 11:33 Pulse Rhythm Irregular 02/24/24 11:33 Pulse Strength 3+ Normal 02/24/24 11:33 Respiratory Rate 18 02/24/24 11:33 Blood Pressure 110/74 02/24/24 11:33 Blood Pressure Mean 86 02/24/24 11:33 Blood Pressure Position Sitting 02/24/24 11:33 Pulse Oximetry 97 02/24/24 11:33 Oxygen Delivery Method Room Air 02/24/24 11:33 Vital Signs Temperature 98.0 F 02/24/24 11:33 Pulse Rate 108 H 02/24/24 11:33 Respiratory Rate 18 02/24/24 11:33 Blood Pressure 110/74 02/24/24 11:33 Pulse Oximetry 97 02/24/24 11:33 Oxygen Delivery Method Room Air 02/24/24 11:33 Temperature 98.0 F 02/24/24 11:33 Pulse Rate 91 02/24/24 12:45 Respiratory Rate 18 02/24/24 11:33 Blood Pressure 107/89 02/24/24 12:31 Pulse Oximetry 96 02/24/24 12:45 Oxygen Delivery Method Room Air 02/24/24 11:33 MDM - Arrhythmia/Palpitations MDM Narrative Medical decision making narrative: Patient is a 73-year-old female presenting for lightheadedness and palpitations. Symptoms could be related to ACS, arrhythmia as, electrolyte abnormalities, blood clot. Will order CBC, D-dimer, BMP, troponin, magnesium, EKG. When patient 1st arrived in the emergency department heart rate was in the 100s. While she was standing in the ED heart rate did come down to the high 80s to low 90s. She is asymptomatic at this time. Vital signs stayed stable and her oxygen saturation stayed in the mid to high 90s. Lab work all returned showing no concerning abnormalities. I do not believe repeat troponin is necessary symptoms have been gone on for over week. EKG shows an atrial tachycardia with a variable AV block. Considering she has had syncope within the past couple months and felt near syncope just this past Tuesday with consistent palpitations I did find it reasonable to speak to cardiology at [facility]. Their on-call provider recommended a Zio patch and 50 metoprolol XL after reviewing the EKG. I informed over of her smart watch darlene heart rate has been between 4139 and this did not change his management plan. He does recommend she have close follow-up with Cardiology. I spoke to her about this and she is agreeable to this plan. Lab Data Labs: Lab Results 02/24/24 02/24/24 Range/Units 11:54 12:20 WBC 4.81 (4.50-11.00) K/uL RBC 4.50 (4.00-5.20) m/uL Hgb 13.4 (12.0-16.0) gm/dL Hct 41.2 (33.0-51.0) % MCV 92 (80-100) fL MCH 30 (26-34) pg MCHC 33 (32-36) gm/dL RDW Coeff of Kalina 13.2 (11.5-15.5) % Plt Count 184 (140-440) K/uL Neut % (Auto) 63.4 (42.0-72.0) % Lymph % (Auto) 23.1 (20-44) % Darke % (Auto) 8.5 (0.0-11.0) % Eos % (Auto) 4.6 (0.0-7.0) % Baso % (Auto) 0.2 (0.0-3.0) % Neut # (Auto) 3.05 (1.7-7.0) K/uL Lymph # (Auto) 1.11 (0.90-2.90) K/uL Darke # (Auto) 0.40 (0.00-0.90) K/UL Eos # (Auto) 0.22 (0.00-0.50) K/uL Baso # (Auto) 0.01 (0.00-0.30) K/uL Abs Immat Gran (auto) 0.01 (0.00-0.30) K/uL Imm/Tot Granulo (auto) 0.2 % D-Dimer Quant (PE/DVT) < 0.27 (0.00-0.50) ug/ml Sodium 136 (135-149) mmol/L Potassium 4.4 (3.6-5.1) mmol/L Chloride 107 (96-114) mmol/L Carbon Dioxide 25 (20-32) mmol/L Anion Gap 4 L (7-15) mEq/L BUN 20 (7-30) mg/dL Creatinine 1.1 (0.5-1.5) mg/dL Estimated Creat Clear 36.41 Estimated GFR 53 ml/min Glucose 89 (60-115) mg/dL Calcium 8.8 (8.4-10.6) mg/dL Magnesium 2.3 (1.5-2.6) mg/dL POC Troponin I 0.00 L (0.01-0.04) ng/ml ECG Data Attestation: I personally reviewed and interpreted this ECG as follows: Prior ECG tracings: available for review Interpretation: Shows atrial tachycardia with a rate of 102 beats per minute with a variable AV block. Left axis deviation, no ST or T-wave abnormalities. Previous EKG did not clearly show this variable block. Repeat EKG at 14:05 shows atrial tachycardia with variable AV block at a rate of 89 beats per minute, left axis, no ST or T-wave abnormalities. Appears similar previous EKG from earlier today. Discharge Plan Discharge Clinical Impression: Atrial tachycardia Patient Disposition: Home, Self-Care Condition: Stable Instructions: Tachycardia (ED) Additional Instructions: Where the Zio patch as directed and take the metoprolol. Speak to your certified court interpreter on Tuesday to see when they want you to follow-up. Use this provided number 1st: [facility] Fall Intern office . If that is not working call . Also does speak to Dr. Case's office to inform them that you had a Zio patch placed in the emergency department and to see when they want you to follow-up with them next. Return to emergency department if you start having episodes of passing out again or developed any other new or concerning symptoms. Prescriptions: New metoprolol succinate [Toprol XL] 50 mg tablet extended release 24 hr 50 mg PO DAILY Qty: 30 0RF No Action Multaq 400 mg tablet Eliquis 5 mg tablet rosuvastatin 5 mg tablet 5 mg PO DAILY cholecalciferol (vitamin D3) 50 mcg (2,000 unit) capsule 50 mcg PO DAILY aspirin [Aspirin Childrens] 81 mg tablet,chewable 81 mg PO DAILY Follow Up/Referrals: Myranda Case MD [Primary Care Provider] - Stand Alone Forms: [employer] Info Instructions
[2024-02-24 12:46] LABS: Basophils Absolute Auto 0.01 K/uL (0.00-0.30); Basophils Percent Auto 0.2 % (0.0-3.0); Eosinophils Absolute Auto 0.22 K/uL (0.00-0.50); Eosinophils Percent Auto 4.6 % (0.0-7.0); Hematocrit 41.2 % (33.0-51.0); Hemoglobin* 13.4 gm/dL (12.0-16.0); Immature Granulocytes Abs Auto 0.01 K/uL (0.00-0.30); Immature Granulocytes Pct Auto 0.2 %; Lymphocytes Absolute Auto 1.11 K/uL (0.90-2.90); Lymphocytes Percent Auto 23.1 % (20-44); Mean Corpuscular HGB Conc 33 gm/dL (32-36); Mean Corpuscular Hemoglobin 30 pg (26-34); Mean Corpuscular Volume 92 fL (80-100); Monocytes Percent Auto 8.5 % (0.0-11.0); Neutrophils Absolute Auto 3.05 K/uL (1.7-7.0); Neutrophils Percent Auto 63.4 % (42.0-72.0); Platelet Count* 184 K/uL (140-440); RDW Coefficient of Variation % 13.2 % (11.5-15.5); White Blood Count* 4.81 K/uL (4.50-11.00)
[2024-02-24 12:50] LABS: Chloride* 107 mmol/L (96-114); Potassium* 4.4 mmol/L (3.6-5.1); Slide Review Reflex No; Sodium* 136 mmol/L (135-149)
[2024-02-24 12:53] LABS: Anion Gap 4 mEq/L (7-15); Blood Urea Nitrogen* 20 mg/dL (7-30); Carbon Dioxide* 25 mmol/L (20-32); Creatinine* 1.1 mg/dL (0.5-1.5); Est. Creatinine Clearance* 36.41; Estimated Glomerular Filt Rate 53 ml/min; Glucose* 89 mg/dL (60-115)
[2024-02-24 12:54] LABS: Calcium* 8.8 mg/dL (8.4-10.6); Magnesium* 2.3 mg/dL (1.5-2.6)
[2024-02-24 13:05] LABS: D Dimer Quantitative* < 0.27 ug/ml (0.00-0.50)
== END 2024-02-24 15:07 | disposition home or self-care (01) ==
PROVIDERS: Emergency Provider Student in an Organized Health Care Education/Training Program; PCP Family Medicine
DX: I47.10 Supraventricular tachycardia, unspecified (principal)
CPT/HCPCS: 36415; 80048; 83735; 84484; 85025; 85379; 93246; 99284

== ENCOUNTER 2024-07-02 09:14 | Day surgery (SDC) | payer MEDICARE, OTHER, SELFPAY ==
[2024-07-02] VITALS (11 sets, daily range): BP systolic 104–144; BP diastolic 68–93; PULSE 48–58; RESP 12–16; TEMP 36.3–36.4; O2SAT 90–97
[2024-07-02] MEDS: SODIUM CHLORIDE 0.9 % (FLUSH) 10 ML SYRINGE IVF (09:45)
[2024-07-02] MEDS: LACTATED RINGERS 1000 ML 1,000 ML 100 ML IV (09:45)
[2024-07-02] MEDS: CEFAZOLIN 1 GM inj IVP (11:50)
--- NOTE | 2024-07-02 12:09 | CRLHL7_ITS ---
For Patients: As a result of the Century Cures Act, medical imaging exams and procedure reports are released immediately into your electronic medical record. You may view this report before your referring provider. If you have questions, please contact your health care provider. Indication: Bunionectomy, Hammer Toe correction Technique: Three fluoroscopic images of the right foot. Fluoroscopic time 19.7 seconds. IMPRESSION: Fluoroscopic guidance for medial midfoot fusion and 2nd hammertoe correction. Dictated by Matt Gunter MD @ 07/02/2024 3:19:37 PM (Electronically Signed)
[2024-07-02] MEDS: BUPIVACAINE 0.25% 30 ML INJECTION (12:10)
--- NOTE | 2024-07-02 14:28 | P.ANES_ITS ---
Anesthesia Charges Start Date/Time Anesthesia Start Date: 07/02/24 Anesthesia Start Time: 11:49 Stop Date/Time Anesthesia Stop Date: 07/02/24 Anesthesia Stop Time: 14:30 Coding CPT Codes CPT Codes: ANESTH LOWER LEG BONE SURG - 17184 ([id number]) P3 - PATIENT W/SEVERE SYS DISEASE, QK - INTELLIGENCE ANALYST 2-4 CNCRNT ANES PROC, QX - ANNUAL GIVING DIRECTOR SVC W/ MD MED DIRECTION
--- NOTE | 2024-07-02 14:28 | W.ANESCHARGE ---
Anesthesia Charges Start Date/Time Anesthesia Start Date: 07/02/24 Anesthesia Start Time: 11:49 Stop Date/Time Anesthesia Stop Date: 07/02/24 Anesthesia Stop Time: 14:30 Coding CPT Codes CPT Codes: ANESTH LOWER LEG BONE SURG - 87780 ([id number]) P3 - PATIENT W/SEVERE SYS DISEASE, QK - CLINICAL DATA SPECIALIST 2-4 CNCRNT ANES PROC, QX - OPTICAL BRIGHTENER MAKER HELPER SVC W/ MD MED DIRECTION
--- NOTE | 2024-07-02 15:38 | W.ANESCHARGE ---
Anesthesia Charges Start Date/Time Anesthesia Start Date: 07/02/24 Anesthesia Start Time: 11:49 Stop Date/Time Anesthesia Stop Date: 07/02/24 Anesthesia Stop Time: 14:30 Summary Extremes of Age - Over 70 or under 1: MDA Coding CPT Codes CPT Codes: ANESTH LOWER LEG BONE SURG - 42638 ([id number]) QK - CLUTCH SPECIALIST 2-4 CNCRNT ANES PROC, QX - MEDIA DIRECTOR SVC W/ MD MED DIRECTION, P3 - PATIENT W/SEVERE SYS DISEASE Additional Codes: Summary - Extremes of Age - Over 70 or under 1: TIGRE ([id number])
--- NOTE | 2024-07-02 16:05 | W.PM.PODPROC ---
Date of Procedure: 07/02/24 Surgeon: Segundo Connor DPM Pre-op Diagnosis: 1. hallux valgus with bunion right 2. 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 hallux valgus with bunion right 2. 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 Lapidus bunionectomy right 2. hammertoe repair 2nd digit right 3. Andrew osteotomy 2nd metatarsal right Indications: patient has had ongoing pain to to bunion, hammertoe and degenerative changes of the right foot. She has elected surgical correction. I reviewed the procedures, recovery and possible complications. These include but not limited to: Poor wound healing, infection, under correction, over correction, potential need for future surgery, deep venous thrombosis, pulmonary embolism possible . She understands risks written consent was obtained. Site marked. Procedure Description: Patient brought the operating room placed supine position on operating table the time IV sedation was initiated local anesthetic injected into the right with foot. She was prepped and draped in a sterile fashion. Standard time-out protocol followed. The right limb was exsanguinated the tourniquet inflated To 250 mm Hg. dorsomedial curvilinear incision was made over the 1st metatarsophalangeal joint extending up to the 1st metatarsal cuneiform joint. The incision was carried down through skin subcutaneous tissues. All bleeding vessels were cauterized. Blunt dissection was carried down to the joint capsule where a linear capsular incision was made. Capsule was extremely thin and atrophic. Sagittal saw was used to remove the medial bony prominence. Blunt dissection carried down to the 1st intermetatarsal space and standard lateral release performed. The dorsal fibular sesamoidal ligaments released, the plantar 1/4 of the joint capsule released and the adductor tendon released. capsular incision made at the 1st metatarsal cuneiform joint. Capsular tissues reflected joint space. A joint distractor applied and the joint distracted. Using an osteotome and curette the cartilage and subchondral bone was removed. The joint distractor was removed. Linear incisions made over the 2nd metatarsophalangeal joint. Blunt dissection carried along the lateral border. Guide pin placed in the 1st metatarsal head and the Gridstoreifuse jig was applied. The 1st metatarsals corrected in all 3 planes. C-arm confirmed excellent position. Guide pin was placed in the plantar medial base of the 1st metatarsal and driven across the fusion site into the middle cuneiform. Position checked under C-arm and a 35 mm 4.0 cannulated screw inserted. Excellent compression across the fusion site. Four locking plate was then applied dorsal medial with two 3.5 mm nonlocking screws and two 3.5 mm locking screws. C-arm concerned excellent position. First metatarsal head was remodeled using rotary bur. Wound was thoroughly irrigated no of breath sterile saline. Joint capsule was repaired with 3-0 Vicryl. Subcutaneous tissues reapproximated 4-0 Vicryl and 4-0 Monocryl. Skin closed with 4-0 Prolene. The the linear incision over the 2nd metatarsophalangeal joint was extended distally and proximally. Blunt dissection carried down to the joint capsule. Extensor tendons were retracted laterally and a linear capsular incision made. The 2nd metatarsal head has 95% cartilage loss. Rongeur was used to remove some of the bony spurring. Sagittal saw was then used to perform a double cut Andrew osteotomy taking 2 mm wedge and then shortening by 2 mm. 2.0 mm cortical screw was used to fixate the osteotomy. A overhang of the dorsal bone was resected with a rongeur. C-arm confirmed excellent position. wound irrigated normal sterile saline. Joint capsule repaired with 4-0 Vicryl. Subcutaneous tissues reapproximated 4-0 Monocryl skin closed with 4-0 Prolene. Linear incision made over the PIPJ 2nd toe right foot. The incision was carried down through skin subcutaneous tissues. Transverse incision made through the joint capsule and extensor tendon. The medial and lateral collateral ligaments were released. Guide pin was placed into the proximal phalanx joint prep tool was used to remove the cartilage and subchondral bone. Drill hole then made. Guide pin removed and placed in the base of the middle phalanx. Joint prep tool used to remove cartilage and subchondral bone. Drill hole made. Implant was then screwed into the middle phalanx and the stem of the implant had placed into the proximal phalanx and the fusion site impacted. C-arm confirmed excellent position of the implant. Wound was thoroughly irrigated normal sterile saline. Extensor tendon was repaired with 4-0 Vicryl and skin closed with 4-0 Prolene. Tourniquet was released and no active bleeding. Sterile dressings were applied. Patient was placed well-padded cam boot. She was given both written and verbal postop instructions. She will follow-up with me in 2 days. She is given oxycodone for pain. She could be heel weight-bearing in the cam boot. Anesthesia: GETA and local Hemostasis: ankle Estimated blood loss (mL): 5 Implants: Rigoberto 4.0 cannulated screw x1, 4 hole plate x1, 3.5 mm locking screw x2, 3.5 mm nonlocking screw x2, hammertoe implant x1, Depuy 2.0 mm cortical screw x1 Specimens: none sent Disposition: PACU
--- NOTE | 2024-07-02 16:28 | SUR.PHASEII ---
Pt up to side of bed and assisted with dressing. PT here to provide education with transfer and walker use. Pt states she was feeling very dizzy after sitting up a while. Pt did state she wanted to try and walk to chair with PT present. Pt ambulated well, great form while following weight bearing restrictions. Pt still just feeling tired and dizzy. No nausea. Will continue to monitor, patient in chair and laying down.
--- NOTE | 2024-07-02 16:54 | SUR.PHASEII ---
Pt up with PT for reevaluation of ambulation. Pt up with boot and walker and successfully walked to chair at far side of room with no dizziness.
== END 2024-07-02 17:14 | disposition home or self-care (01) ==
LOC: OR 09:16
PROVIDERS: PCP Family Medicine; Visit Provider Podiatrist
PROC: (CPT 28740; principal; 2024-07-02 12:15)
PROC: (CPT 28285; 2024-07-02 12:15)
DX: M20.11 Hallux valgus (acquired), right foot (principal); M21.611 Bunion of right foot; M20.41 Other hammer toe(s) (acquired), right foot; M19.071 Primary osteoarthritis, right ankle and foot
CPT/HCPCS: 28297; 28285; 28308; 01480; 73620; 97116; 97162; 99100; C1713; J0665; J0690; J1100; J2250; J2405; J2704; J3490; J7120

== ENCOUNTER 2024-08-20 11:44 | Emergency (ER) | payer MEDICARE, OTHER, SELFPAY ==
[2024-08-20 11:46] VITALS: BP 138/83; PULSE 70; RESP 18; TEMP 36.9; O2SAT 96; BMI 20.3
--- OUTSIDE RECORDS SUMMARY | 2024-08-20 11:46 | XMS_ITS | Clinical Summary ---
Author Organization [facility] Address [address] [place] [address] Care Team Providers [facility] Operator Name Role Phone Myranda Case MD Primary Care Prov ider Sage Hutchinson MD Unavailable [phone] Zachary Paz MD Unavailable Rasta Ramsey MD Unavailable Papa Harley MD Unavailable Estela Del Angel MD Unavailable [phone] Allergies Active Allergy Reactions Criticality Noted Date Comments Dust Mites Runny Nose 10/16/2007 Iodine Nausea And Vomiting 11/15/2006 Oral (traces in a water bottle which had been sterilized with iodine) patient drank from this bottle and had n/v. Cynthia Kovacs RN .................... 02/26/2016 10:52 AM Shellfish Containing Products Rash,Nausea And Vomiting 11/15/2006 Medications cholecalciferol (VITAMIN D3) 1,000 unit capsule Take 2,000 units by mouth once daily. 0 3 Active aspirin (ECOTRIN) 81 mg enteric coated tabletIndications :Persistent atrial fibrillation (HC) Take 1 Tablet (81 mg) by mouth once daily with a meal. 0 3 Active alendronate (Fosamax) 70 mg tabletIndications :Osteopenia, unspecified location Take 1 Tablet (70 mg) by mouth once a week in the morning. Take on empty stomach with full glass of water. Do not lie down for 1 hr. 12 Tablet 3 4 Active apixaban (ELIQUIS) 5 mg tabletIndications :Persistent atrial fibrillation (HC) Take 1 Tablet (5 mg) by mouth two times daily. DO NOT take on morning of 05/06/22 180 Tablet 3 5 Active metoprolol succinate (TOPROL XL) 50 mg sustained-release tabletIndications :Atrial tachycardia (HC) Take 1 Tablet (50 mg) by mouth once daily. 90 Tablet 3 5 Active rosuvastatin (CRESTOR) 5 mg tabletIndications :Paroxysmal atrial fibrillation (HC) Take 1 Tablet (5 mg) by mouth at bedtime. 90 Tablet 3 5 Active durable medical equipment (DME)Indications: S/P foot surgery, right [id number] Squared Toe Post Op Shoe, Medium 1 Each 5 Active dronedarone 400 mg tab tabletIndications :Atrial fibrillation status post cardioversion (HC),Hyperthyroid ism Take 1 Tablet (400 mg) by mouth two times daily with meals. 180 Tablet 3 5 Active dronedarone (MULTAQ) 400 mg tab tabletIndications :Hyperthyroidism, Atrial fibrillation status post cardioversion (HC) Take 1 Tablet (400 mg) by mouth two times daily with meals. 180 Tablet 3 4 08/14/19 25 Discontinu ed(Reorder (E-cancel not sent)) oxyCODONE 5 mg immediate release tabletIndications :Hallux valgus, right,Bunion of great toe of right foot,DJD (degenerative joint disease), ankle and foot, right,Hammertoe of second toe of right foot Take 1-2 Tablets (5-10 mg) by mouth every 4 hours if needed for Pain. 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 Tachycardia, unspecified Overview (07/22/2014): Repeat echocardiogram 2015 Resolved Problems Problem Noted Date Diagnosed Date Resolved Date Mixed hearing loss, unilateral 09/08/2011 09/08/2011 Unspecified conductive hearing loss 10/17/2009 09/08/2011 Overview (10/17/2009): Right ear-per 2001 ENT note patient may have otosclerosis Distal radial fracture 07/09/200908/22 Sensorineural hearing loss, unspecified 01/13/2007 10/17/2009 Encounters Date Type Department Care Team Description 08/20/2024 Nurse Triage [facility] [address] [place] [address] Myranda Case MD Nose Problem 08/14/2024 3:00 PM CDT Office Visit [facility] [address] [place] [address] Segundo Connor DPBronson Post-op (Right 6 week post op, DOS 07/02/24) 08/14/2024 2:30 PM CDT Ancillary Procedure [address] [address] 08/13/2024 11:24 AM CDT - 08/13/2024 11:59 PM CDT Hospital Encounter [address] [address] Atrial fibrillation status post cardioversion (HC); Cardiomyopathy; Persistent atrial fibrillation (HC); Tachycardia, unspecified 08/13/2024 11:00 AM CDT Office Visit [facility] - [address] [address] Rasta Ramsey MD Follow Up (Annual f/u. 05/22 stress test. 04/04 echo. Pt states feeling good. No recent cardiac symptoms. Does feel her afib occasionally. ) 08/13/2024 Travel 08/09/2024 Travel 07/18/2024 9:00 AM CDT Office Visit [facility] [address] [place] [address] Segundo Connor DPM Post-op (Right foot, DOS 07/02/24, 2 week post op) 07/18/2024 Travel 07/14/2024 Travel 07/04/2024 9:00 AM CDT Office Visit [facility] [address] [place] [address] Segundo Connor DPM Post-op (Right foot, DOS 07/02/24, initial post op) 07/04/2024 8:45 AM CDT Ancillary Procedure [facility] [address] [place] [address] 07/04/2024 Travel 07/03/2024 Telephone [facility] [address] [place] [address] Segundo Connor DPM Surgical Followup 07/02/2024 7:00 AM CDT Office Visit [facility] at [facility] [address] [facility] [address] Segundo Connor DPM Surgery Scheduled 07/02/2024 Orders Only [facility] Scanner 1 scan: (1-Ord) YASMINE LAPIDUS BUNIONECTOMY RT, 07/02/2024 07/02/2024 Orders Only [facility] Scanner 1 scan: (1-Ord) YASMINE XR FOOT RT 2V, 07/02/2024 06/30/2024 Travel 06/28/2024 9:30 AM CDT Nurse/Clinic Staff Only [facility] [address] [place] [address] Immunization/Injecti on (COVID-19 VACCINE ); Immunization/Injecti on 06/27/2024 Travel 06/21/2024 Telephone [facility] [address] [place] [address] Myranda Case MD Follow Up 06/20/2024 10:00 AM CDT Office Visit [address] [address] Keith Martinez, AuD Hearing Aid 06/19/2024 9:30 AM CDT Office Visit [facility] [address] [place] [address] Myranda Case MD Preoperative Exam ( Dr Connor 07/02/2024 bunion correction in right foot. [facility]) 06/19/2024 Travel 06/16/2024 Travel 05/23/2024 Telephone [facility] [place] [address] [place] [address] Rasta Ramsey MD Results from Last 3 Months Immunizations Immunization Administration Dates Next Due Amb Influenza, Inactivated A IIV4 (Age 65+ Years) Preserv Free 12/19/2019 COVID-19 VACCINE SPIKEVAX (M ODERNA 50MCG/0.5ML) 12YO+ PFS 06/28/2024,01/06/2024,09/22/2023,04/28 COVID-19 vaccine (IES-Bio NTech 30mcg/0.3mL) 12YO+ BIVALENT PF, MDV 12/29/2022,07/22/2022,12/23/2021 [...] [address] eroids Other cancer Brother 1 jacob vitamin B def Hypertension Brother 2 Dominick Skin cancer Brother 2 Dominick Good Health Daughter Heart Disease Father mitral valve Diabetes Maternal Grandfather Allergies Mother Asthma Mother Atrial fibrillation Mother at age 9 5 Cancer Mother hysterectomy fo r cervical/Skin cancer Skin cancer Mother Genetic Other Her family hist ory is notable for her father who had mitral valve prolapse and developed atrial fibrillation and mitral valve rupture requiring valve replacement. He of heart failure five years later. Mother had cancer of the uterus. Allergies Sister Tana Arthritis Sister Tana knee replacemen t Asthma Sister Tana RIGO disease Sister Tana Sleep apnea Sister Tana Good Health Son [...] is your housing situation today? 1 10/25/2023 Interpersonal Safety Answer Date Record ed Are you being hit, kicked, p ushed or yelled at (see row info)? No 03/23/2024 Interpersonal Safety Abuse 12 - 18 Not on file 03/23/2024 Interpersonal Safety Ambulatory Vulnerability No t on file 03/23/2024 Utilities Answer Date Recorded Do you have trouble paying f or utilities (for example, heat, electricity, water, phone)? 1 10/25/2023 Comments No Sex and Gender Information Value Date Recorded Sex Assigned at Not on file Legal Sex Female 6:25 AM BUILDING CONSTRUCTION INSPECTOR Gender Identity Not on file Sexual Orientation Not on file Obstetrics History Para Term AB IAB SAB Ectopic Multiple Livin g Live Births 3 2 2 2 Date Outcome GA Total Labor Labor/2nd/3rd Weight Sex Type Anes PTL Jessica A1 A5 Name Clin Term Term Last Filed Vital Signs Vital Sign Reading Time Taken Comments Blood Pressure 130/81 08/14/2024 2:59 PM CDT Pulse 76 08/14/2024 2:59 PM CDT Temperature 36.6 C (97.9 F) 02/24/2024 10:45 AM BUILDING CONSTRUCTION INSPECTOR Respiratory Rate 16 06/30/2023 11:14 AM CDT Oxygen Saturation 97% 08/14/2024 2:59 PM CDT Inhaled Oxygen Concentration - - Weight 52.7 kg (116 lb 3.2 oz) 08/13/2024 10:47 AM CDT Height 158.8 cm (5' 2.5) 08/13/2024 10:47 AM CD T Body Mass Index 20.91 08/13/2024 10:47 AM CDT Plan of Treatment Upcoming Encounters Date Type Department Care Team (Late st Contact Info) Description 10/09/2024 2:00 PM CDT Office Visit [facility] [address] [place] [address] Segundo Connor DPM [address] [place] [address] 03/25/2025 10:55 AM BUILDING CONSTRUCTION INSPECTOR Office Visit [facility] [address] [facility] [address] [place] [address] [place] [address] [place] [address] Health Maintenance Due Date Last Done Comments Mammogram for age 45-75 11/13/2024 11/14/19, 11/12/2022, 11/11/2021, Additional history exists Depression screening for age 12+ 01/24/2025 01/25/2024, 01/24/2024, 01/18/2023, Additional history exists Medicare Wellness for age 65+ 01/24/2025 01/24/2024, 01/18/2023, 01/11/2022, Additional history exists BMI (ht and wt on same day) for age 18+ 08/13/2025 08/13/2024, 01/24/2024, 08/15/2023, Additional history exists Fecal testing sDNA-FIT (Cologuard) for age 45-75 02/01/2027 02/02/2024 Lipids for age 45-75 01/23/2029 01/24/2024, 10/26/2022, 01/11/2022, Additional history exists Tetanus booster 10/30/2030 10/30/2020, 2010, 10/17/2001 Hepatitis C screening for age 18-79 Completed 07/22/2014 Pneumococcal series for age 50+ Completed 10/05/2018, 09/06/2016, 01/19/2002 Zoster (shingles) series for age 50+ Completed 03/19/2019, 10/05/2018, 11/10/2010 Tdap Completed 10/30/2020, 10/29/2010 RSV vaccine for adults or Completed 01/19/2023 Influenza Vaccine Completed 01/06/2024, , 12/08/2020, Additional history exists DEXA/DXA scan for age 65+ Completed 2023, 11/03/2017, 10/31/2012, Additional history exists COVID-19 vaccine series Completed 06/29/19, 01/06/2024, 09/22/2023, Additional history exists Hepatitis B series for 19+ Aged Out N o longer eligible based on patient's age to complete this topic Procedures Procedure Name Priority Date/Time Associated Diagnosis Comments XR FOOT 3 VIEWS RIGHT Routine 08/14/2024 2:50 PM CDT S/P foot surgery, right CREATININE Today 08/13/2024 11:40 AM CDT Atrial fibrillation status post cardioversion (HC) Cardiomyopathy Persistent atrial fibrillation (HC) Tachycardia, unspecified ALT (SGPT) Today 08/13/2024 11:40 AM CDT Atrial fibrillation status post cardioversion (HC) Cardiomyopathy Persistent atrial fibrillation (HC) Tachycardia, unspecified AST (SGOT) Today 08/13/2024 11:40 AM CDT Atrial fibrillation status post cardioversion (HC) Cardiomyopathy Persistent atrial fibrillation (HC) Tachycardia, unspecified EKG 12 LEAD Routine 08/13/2024 10:40 AM CDT Atrial fibrillation status post cardioversion (HC) Cardiomyopathy Persistent atrial fibrillation (HC) Tachycardia, unspecified XR FOOT 3 VIEWS RIGHT Routine 07/04/2024 8:53 AM CDT S/P foot surgery, right SCAN-RADIOLOGY REPORT 07/02/2024 12:00 AM CDT SCAN-OPERATIVE/PROC EDURE REPORT 07/02/2024 12:00 AM CDT BASIC METABOLIC PANEL Routine 06/19/2024 10:36 AM CDT Elevated serum creatinine SDNA-FIT EXTERNAL (COLOGUARD) Routine 02/02/2024 6:30 AM BUILDING CONSTRUCTION INSPECTOR Screening for colon cancer XR DXA BONE DENSITY 2 SITES AXIAL Routine 01/25/2024 9:07 AM CDT Post-menopausal LIPID PANEL W REFLEX MEASURED LDL Routine 01/24/2024 9:58 AM CDT Lipid screening XR MAMMO NASH BILAT SCREEN Routine 11/14/2023 7:38 AM CDT Visit for screening mammogram ANTI HCV Routine 07/22/2014 10:21 AM CDT Need for hepatitis C screening test from Last 3 Months or Most Recently Relevant to Health Maintenance Results * XR FOOT 3 VIEWS RIGHT (08/14/2024 2:50 PM CDT) Only the most recent of2 resultswithin the time period is included. Anatomical Region Laterality Modality FEET, FOOT R Computed Radiogr aphy 08/14/2024 2:53 PM CDT Impressions 08/14/2024 2:53 PM CDT Postop changes Lapidus bunionectomy with intact hardware. Second hammertoe correction also noted. Alignment stable. Plantar calcaneal spur. No fracture. Similar appearance of the 2nd MTP joint. Dictated by Matt Gunter MD @ 08/14/2024 2:53:48 PM (Electronically Signed) Narrative 08/14/2024 2:53 PM CDT For Patients: As a result of the Cures Act, medical imaging exams and procedure reports are released immediately into your electronic medical record. You may view this report before your referring provider. If you have questions, please contact your health care provider. Indication: S/P foot surgery, right Technique: Three views right foot Comparison: 07/04/2024 Procedure Note Matt Gunter MD - 08/14/2024 For Patients: As a result of the Cures Act, medical imagingexams and procedure reports are released immediately into your electronicmedical record. You may view this report before your referring provider.If you have questions, please contact your health care provider. Indication: S/P foot surgery, right Technique: Three views right foot Comparison: 07/04/2024 IMPRESSION: Postop changes Lapidus bunionectomy with intact hardware. Second hammertoecorrection also noted. Alignment stable. Plantar calcaneal spur. Nofracture. Similar appearance of the 2nd MTP joint. Dictated by Matt Gunter MD @ 08/14/2024 2:53:48 PM (Electronically Signed) Segundo Connor DPM GENERAL IMAGING Final Res ult * (ABNORMAL) CREATININE (08/13/2024 11:40 AM CDT) eGFR 66(L) >90 mL/min/1.7 3m2 08/13/2024 12:04 PM CDT [facility] Comment:As of 2021, eG FR is calculated by the CKD-EPI creatinine equation without race adjustment. eGFR can be influenced by muscle mass, exercise, and diet. The reported eGFR is an estimation only and is only applicable if the renal function is stable. CREATININE 0.92(H) 0.50 - 0.90 mg/dL 08/13/2024 12:04 PM CDT [facility] Blood BLOOD SPECIMEN / Unknown Venipuncture / Unknown 08/13/2024 11:40 AM CDT 08/13/2024 11:40 AM CDT Rasta Ramsey MD CHEMISTRY Fin al Result Performing Organization Address City/[facility] Co de Phone Number [address] [address] * ALT (SGPT) (08/13/2024 11:40 AM CDT) ALT (SGPT) 12 10 - 35 IU/L 08/13/2024 12:04 PM CDT [facility] Blood BLOOD SPECIMEN / Unknown Venipuncture / Unknown 08/13/2024 11:40 AM CDT 08/13/2024 11:40 AM CDT Rasta Ramsey MD CHEMISTRY Fin al Result Performing Organization Address City/[facility]/ZIP Co de Phone Number [address] [address] * AST (SGOT) (08/13/2024 11:40 AM CDT) Pathologist [facility] AST (SGOT) 22 10 - 35 IU/L 08/13/2024 12:04 PM CDT [facility] Blood BLOOD SPECIMEN / Unknown Venipuncture / Unknown 08/13/2024 11:40 AM CDT 08/13/2024 11:40 AM CDT us Rasta Ramsey MD CHEMISTRY Fin al Result [place] [id number] [facility] [place] [address] * EKG 12 LEAD (08/13/2024 10:40 AM CDT) Pathologist [facility] Interpretation Normal sinus rhythm Left axis deviation Incomplete right bundle branch block Abnormal ECG When compared with ECG of 23-Mar-2024 14:38, Incomplete right bundle branch block is now Present Ventricular Rate 64 BPM Atrial Rate 64 BPM P-R Interval 170 ms QRS Duration 102 ms QT 448 ms QTc 462 ms P Countyline 87 degrees R Countyline -61 degrees T Countyline 77 degrees 08/13/2024 10:4 0 AM CDT 08/16/2024 7:56 PM CDT us Rasta Ramsey MD EKG ORD Fin al Result * SCAN-RADIOLOGY REPORT (07/02/2024 12:00 AM CDT) Anatomical Region Laterality Modality Other us Scanner OTHER Final Result * SCAN-OPERATIVE/PROCEDURE REPORT (07/02/2024 12:00 AM CDT) us Scanner OTHER Final Result * BASIC METABOLIC PANEL (06/19/2024 10:36 AM CDT) Pathologist [facility] GLUCOSE 75 65 - 99 mg/dL [facility] Comment: Fasting reference interval UREA NITROGEN (BUN) 20 7 - 25 mg/dL [facility] CREATININE 0.97 0.60 - 1.00 mg/dL [facility] EGFR 62 > OR = 60 mL/min/1. 73m2 [facility] BUN/CREATININE RATIO SEE NOTE: 6 - 22 (calc) [facility] Comment: Not Reported: BUN and Creatinine are within reference range. SODIUM 139 135 - 146 mmol/L [facility] POTASSIUM 4.7 3.5 - 5.3 mmol/L [facility] CHLORIDE 103 98 - 110 mmol/L [facility] CARBON DIOXIDE 26 20 - 32 mmol/L [facility] ELECTROLYTE BALANCE 10 7 - 17 mmol/L (calc) [facility] CALCIUM 9.2 8.6 - 10.4 mg/dL [facility] Blood BLOOD SPECIMEN / Unknown 06/19/2024 10:36 AM CDT 06/19/2024 10:37 AM CDT Myranda Case MD CHEMISTRY Fi nal Result [facility] [address] [place] [address], [address] [address] * SDNA-FIT EXTERNAL (COLOGUARD) (02/02/2024 6:30 AM BUILDING CONSTRUCTION INSPECTOR) NONINV COLON CA DNA+OCC BLD SCRN STL-IMP Negative Negative 02/09/2024 11:32 PM BUILDING CONSTRUCTION INSPECTOR [facility] [facility] (CLIA #:[id number]) Comment: NEGATIVE TEST RESULT. A negative Cologuard [...] (Carlos Mayo al, N Engl J Med 2014;370(14):2867-9625) The normal value (reference range) for this assay is negative. COLOGUARD RE-SCREENING RECOMMENDATION: Periodic colorectal cancer screening is an important part of preventive healthcare for asymptomatic individuals at average risk for colorectal cancer. Following a negative Cologuard result, the [place] Cancer Society and U.S. Multi-Society Task Force screening guidelines recommend a Cologuard re-screening interval of 3 years. References: [place] Cancer Society Guideline for Colorectal Cancer Screening: https://www.cancer.org/cancer/glfjq-gylbat-hgkxep/vtjdhlqir-ryzonjwsn-ngzkbfh/ac s-rec ommendations.html.; Claudio DK, Marifer PECK, Kathie ZhengK, Colorectal Cancer Screening: Recommendations for Physicians and Patients from the U.S. Multi-Society Task Force on Colorectal Cancer Screening , Am J Gastroenterology 2017; 112:8373-8566. TEST DESCRIPTION: Composite algorithmic analysis of stool [...] screened with both Cologuard and colonoscopy. (Carlos Thompson, N Engl J Med 2014;370(14):0808-1200.) Cologuard may produce a false negative or false positive result (no colorectal cancer or precancerous polyp present at colonoscopy follow up). A negative Cologuard test result does not guarantee the absence of CRC or advanced adenoma (pre-cancer). The current Cologuard screening interval is every 3 years. ([employer] Cancer Society and U.S. Multi-Society Task Force). Cologuard performance data in a 10,000 patient pivotal study using colonoscopy as the reference method can be accessed at the following location: www.Allozyne/results. Additional description of the Cologuard test process, warnings and precautions can be found at www.Hithrurd.com. Stool specimen (specimen) (Rectum) 02/02/2024 6:30 AM BUILDING CONSTRUCTION INSPECTOR 02/04/2024 12:24 PM BUILDING CONSTRUCTION INSPECTOR Myranda Case MD URINE Fi nal Result [facility] [facility] (CLIA #:[id number]) [place] [address], * (ABNORMAL) XR DXA BONE DENSITY 2 SITES AXIAL (01/25/2024 9:07 AM CDT) Anatomical Region Laterality Modality Spine, HIPS, HIPL, HIPR Other Impressions 01/31/2024 2:02 PM BUILDING CONSTRUCTION INSPECTOR Osteopenia. RECOMMENDATIONS: The National Osteoporosis Foundation recommends [...] to assess therapeutic efficacy. Essie Mayer PA-C [facility] 01/31/2024 Narrative 01/31/2024 2:02 PM BUILDING CONSTRUCTION INSPECTOR For Patients: Results are automatically released to your [facility] ([employer]) account once available, in compliance with federal regulations. This means that you may see your results before your provider has had a chance to review them. Please allow 2-3 business days for your provider to comment on the results. XR DXA Bone Mineral Density (BMD) EXAM LOCATION: [facility] [address] [facility] [address] PATIENT NAME: Adela Holbrook DATE OF : [...] two scanners are made by the same flask cleaner. PROCEDURE: Dual-energy x-ray absorptiometry performed with routine [...] 11.9%. 10-year probability of hip fracture: 3.1%. us Myranda Case MD DEXA Fi nal Result * LIPID PANEL W REFLEX MEASURED LDL (01/24/2024 9:58 AM CDT) [facility] CHOLESTEROL, TOTAL 134 <200 mg/dL [facility] HDL CHOLESTEROL 77 > OR = 50 mg/dL [facility] TRIGLYCERIDES 77 <150 mg/dL [facility] LDL-CHOLESTEROL 41 mg/dL (calc) [facility] Comment: Reference range: <100 Desirable range <100 mg/dL for primary prevention; <70 mg/dL for patients with CHD or diabetic patients with > or = 2 CHD risk factors. LDL-C is now calculated using the Serafin-Jona calculation, which is a validated novel method providing better accuracy than the Friedewald equation in the estimation of LDL-C. Serafin SS et al. JEROMY. 2013;310(19): 7313-2560 (http://education.Jigsaw.IntroNet/faq/PVI451) CHOL/HDLC RATIO 1.7 <5.0 (calc) [facility] NON HDL CHOLESTEROL 57 <130 mg/dL (calc) [facility] Comment: For patients with diabetes plus 1 major ASCVD risk factor, treating to a non-HDL-C goal of <100 mg/dL (LDL-C of <70 mg/dL) is considered a therapeutic option. Blood BLOOD SPECIMEN / Unknown 01/24/2024 9:58 AM CDT 01/24/2024 9:58 AM CDT Myranda Case MD CHEMISTRY Fi nal Result [facility] [address] [place] [address], [place] [phone] [facility] [address] [place] [address] * XR MAMMO NASH BILAT SCREEN (11/14/2023 [...] For Patients: As a result of the Century Cures Act, medical imaging exams and procedure reports are released immediately into your electronic medical record. You may view this report before your referring provider. If you have questions, please contact your health care provider. XR MAMMO NASH BILAT SCREEN [[id number]] CLINICAL HISTORY: This is an asymptomatic 73 y.o. patient. INDICATION FOR EXAM: Mammogram Screening. TECHNIQUE: CC & MLO views were obtained. This study was evaluated with the assistance of Computer-Aided Detection. Breast Tomosynthesis was used in interpretation. COMPARISON FILM: Yes 11/12/22 [facility] 11/11/21 [facility] FINDINGS: There are scattered areas of fibroglandular density. There are no dominant masses, suspicious micro calcifications or areas of architectural distortion. Myranda Case MD MAMMO Fi nal Result * ANTI HCV [14212.2] (07/22/2014 10:21 AM CDT) HEPATITIS C ANTIBODY Non-Reacti ve Non-Reacti ve 07/22/2014 4:44 PM CDT [facility] Blood specimen (specimen) BLOOD SPECIMEN / Unknown Venipuncture / Unknown 07/22/2014 10:21 AM CDT 07/22/2014 10:21 AM CDT Narrative [facility] - 07/22/2014 4:44 PM CDT Antibodies to HCV not detected; does not exclude the possibility of exposure to HCV. us Myranda Case MD SEND OUTS Fi nal Result [facility] [address] [place] [address], [place] from Last 3 Months or Most Recently Relevant to Health Maintenance Insurance [employer] MR PB ONLY MEDICA PRIME SOLUTION HB MEDICARE PART B HB ONLY MEDICARE PART A HB ONLY Advance Directives Documents on File Type Date Recorded Patient [employer] Healthcare Directive 04/29/2022 023 * [...] Comments Code Status Discussion: Discussed Care Teams Well Services Operator Relationship Specialty Start Date End Date Myranda Case MD [address] [place] [address] PCP - General 08/19/05 Sage Hutchinson MD [address] [place] [address] Cardiology Cardiovascular Disease 08/31/11 Zachary Paz MD [address] [place] [address] Otolaryngology Surgery - Otolaryngology 02/15/13 Rasta Ramsey MD [address] [place] [id number] Cardiovascular Disease 11/04/21 Papa Harley MD [address] [address] Cardiovascular Disease 01/11/22 [place] [address] [place] [address] Endocrinology Endocrinology 03/19/24
--- NOTE | 2024-08-20 11:59 | ED.GENADULT ---
HPI - General Adult General Chief complaint: Epistaxis/Nosebleed Stated complaint: nose bleed Time Seen by Provider: 08/20/24 11:46 History of Present Illness HPI narrative: Patient is a pleasant 74 white female on aspirin and Eliquis for cardiac issues who has had a nosebleed for a couple of hours. She has not had much trouble with this in the past. She was unable to get a to quit with simply pinching her nose. She has had some swallowing of blood as well. She feels that has slowed down since it started. No chest pain, breathing problem or other issue. Related Data Home Medications ?Medication ?Instructions ?Recorded ?Confirmed apixaban 5 mg tablet (Eliquis) 5 mg PO BID 05/25/22 08/20/24 dronedarone 400 mg tablet (Multaq) 400 mg PO BID 05/25/22 08/20/24 aspirin 81 mg chewable tablet 81 mg PO DAILY 02/24/24 08/20/24 (Aspirin Childrens) cholecalciferol (vitamin D3) 50 50 mcg PO DAILY 02/24/24 08/20/24 mcg (2,000 unit) capsule rosuvastatin 5 mg tablet 5 mg PO DAILY 02/24/24 08/20/24 alendronate 70 mg tablet (Fosamax) 70 mg PO QWEEK 06/28/24 08/20/24 Previous Rx's ?Medication ?Instructions ?Recorded metoprolol succinate 50 mg 50 mg PO DAILY #30 tabs 02/24/24 tablet,extended release 24 hr (Toprol XL) Allergies Allergy/AdvReac Type Severity Reaction Status Date / Time iodine Allergy Verified 08/20/24 11:51 shellfish derived Allergy Verified 08/20/24 11:51 Review of Systems Status of ROS: Reports: 6 or more systems reviewed and unremarkable except as noted in History and below [facility] Medical History 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.72 - Dissection of iliac artery (ICD-10) Cardiomyopathy ?I42.9 - Cardiomyopathy, unspecified (ICD-10) Osteopenia ?M85.80 - Other specified disorders of bone density and structure, unspecified site (ICD-10) Diverticulosis of colon (without mention of hemorrhage) ?K57.30 - Diverticulosis of large intestine without perforation or abscess without bleeding (ICD-10) Tachycardia, unspecified ?R00.0 - Tachycardia, unspecified (ICD-10) Mitral valve disorder ?I05.9 - Rheumatic mitral valve disease, unspecified (ICD-10) Atrial fibrillation status post cardioversion ?I48.91 - Unspecified atrial fibrillation (ICD-10) Surgical History Hx of wisdom tooth extraction ?K08.409 - Partial loss of teeth, unspecified cause, unspecified class (ICD-10) Hx of mitral valve replacement ?Z95.2 - Presence of prosthetic heart valve (ICD-10) Hx of hysterectomy ?Z90.710 - Acquired absence of both cervix and uterus (ICD-10) S/P ablation of atrial fibrillation ?Z98.890 - Other specified postprocedural states (ICD-10) ?Z86.79 - Personal history of other diseases of the circulatory system (ICD-10) Social History Smoking Status: Never smoker Do you use any of these nicotine containing products: None How often do you have a drink containing alcohol: never How often do you have six or more drinks on one occasion: Never AUDIT-C Alcohol total score: 0 Non-prescribed substance use: denies use Caffeine: Yes Are you using contraception or practicing any form of control: No service: No Exam Narrative: Exam Narrative: Patient's vital signs within normal limits She has got a friable nasal mucosa on the right nostril where she is bleeding, this was treated with silver nitrate x3 applications. I was able to get the entire septum covered. Re-examination showed no obvious bleeding. A nasal clip was placed on the patient for period of time as well. Should be observed in the ED. Const: Vital Signs, click to edit/add: Vital Signs - 24 hr 08/20/24 11:46 08/20/24 12:20 Temperature 98.5 F Pulse Rate [Right Pulse Oximeter] 70 63 Respiratory Rate 18 18 Blood Pressure [Ri ght Upper Arm] 138/83 122/92 H Pulse Oximetry 96 95 Oxygen Delivery Me thod Room Air Room Air Course Vital Signs Vital signs: Initial Vital Signs Temperature 98.5 F 08/20/24 11:46 Temperature Source Temporal Artery Scan 08/20/24 11:46 Pulse Rate 70 08/20/24 11:46 Pulse Rhythm Regular 08/20/24 11:46 Pulse Strength 3+ Normal 08/20/24 11:46 Respiratory Rate 18 08/20/24 11:46 Blood Pressure 138/83 08/20/24 11:46 Blood Pressure Mean 101 08/20/24 11:46 Blood Pressure Position Sitting 08/20/24 11:46 Pulse Oximetry 96 08/20/24 11:46 Oxygen Delivery Method Room Air 08/20/24 11:46 Vital Signs Temperature 98.5 F 08/20/24 11:46 Pulse Rate 70 08/20/24 11:46 Respiratory Rate 18 08/20/24 11:46 Blood Pressure 138/83 08/20/24 11:46 Pulse Oximetry 96 08/20/24 11:46 Oxygen Delivery Method Room Air 08/20/24 11:46 Temperature 98.5 F 08/20/24 11:46 Pulse Rate 63 08/20/24 12:20 Respiratory Rate 18 08/20/24 12:20 Blood Pressure 122/92 H 08/20/24 12:20 Pulse Oximetry 95 08/20/24 12:20 Oxygen Delivery Method Room Air 08/20/24 12:20 Medications Administered Medications: Discontinued Medications Generic Name Dose Route Start Last Admin Trade Name Freq PRN Reason Stop Dose Admin Silver Nitrate/Potassium Nitrate 10 each 08/20/24 12:00 08/20/24 12:26 Silver Nitrate Applicator 1 Each Stick..Ea. TOPICAL 08/20/24 12:01 5 each ONCE ONE Administration Medical Decision Making MDM Narrative Medical decision making narrative: Patient is a 71-year-old female has a right nostril epistaxis. Treated with silver nitrate. She is on aspirin and Eliquis. All clarify with her regarding her valvular replacement regarding anticoagulants. Might be reasonable to stop the aspirin for few days. She will continue on the Eliquis. Careful monitoring of symptoms. If recurrence she may need a nasal pack. Will watch in the ER at this time and if it stops allow home and observation. Addendum 12:06 p.m.: The patient did have cardiac stents but these worse about 4 years ago for which she takes the aspirin, she also had atrial fib in the past but she is in sinus rhythm the last time checked, lastly she had mitral valve repair not replacement. She will hold the Eliquis tonight x1 dose and then restart tomorrow, and hold aspirin for 3 days and then restart. Will send her if she is not bleeding with the nasal clip to use intermittently and she has had silver nitrate applied. Addendum 12:22 p.m. the patient is still not bleeding, she had a nasal clip on but that has been removed she still not bleeding. She can wear that intermittently at home for 10 minutes or so couple times if it leaks again otherwise just observing light activity. Shoulder Eliquis today for 1 dose and then restart tomorrow, hold aspirin for 3 days. Discharge Plan Discharge Clinical Impression: Epistaxis Patient Disposition: Home w/ Parent or Adult Condition: Improved Additional Instructions: Hold Eliquis dose tonight and then start normal dose tomorrow, hold aspirin for 3 days and then restart. Use the nasal clip as needed. You may get some mild rebleeding and then put a clip on for 10-15 minutes and then taken off and if you have recurrence x2 then he should come back will put a packing in her nose. Activity Level: Light activity Discharge Diet: Regular Prescriptions: No Action Multaq 400 mg tablet 400 mg PO BID Eliquis 5 mg tablet 5 mg PO BID alendronate [Fosamax] 70 mg tablet 70 mg PO QWEEK rosuvastatin 5 mg tablet 5 mg PO DAILY cholecalciferol (vitamin D3) 50 mcg (2,000 unit) capsule 50 mcg PO DAILY aspirin [Aspirin Childrens] 81 mg tablet,chewable 81 mg PO DAILY metoprolol succinate [Toprol XL] 50 mg tablet extended release 24 hr 50 mg PO DAILY Qty: 30 0RF Follow Up/Referrals: Myranda Case MD [Primary Care Provider, Family Practice] Stand Alone Forms: [employer] Info Instructions
[2024-08-20 12:20] VITALS: BP 122/92; PULSE 63; RESP 18; O2SAT 95
[2024-08-20] MEDS: SILVER NITRATE APPLICATOR 1 EACH STICK..EA. 10 EACH TOPICAL (12:26)
== END 2024-08-20 12:25 | disposition home or self-care (01) ==
LOC: ED 12:13
PROVIDERS: Emergency Provider Family Medicine; PCP Family Medicine
DX: R04.0 Epistaxis (principal)
CPT/HCPCS: 99284; A9270

== ENCOUNTER 2024-08-20 15:35 | Emergency (ER) | payer MEDICARE, OTHER, SELFPAY ==
[2024-08-20 15:39] VITALS: BP 132/92; PULSE 76; RESP 18; O2SAT 94; BMI 20.3
--- NOTE | 2024-08-20 15:42 | ED.GENADULT ---
HPI - General Adult General Chief complaint: Epistaxis/Nosebleed Stated complaint: Bloody nose running again/here earlier Time Seen by Provider: 08/20/24 15:42 History of Present Illness HPI narrative: Patient was here earlier today with the right-sided knee nose bleed she is on Eliquis and aspirin. She tried to clip her nose a couple of times with a nasal clip but it did not seem to stop bleeding and she presents back she noticed some running of the nose. There was some silver nitrate applied to her nasal septum. I presented to the room and she was bleeding of the right nostril I placed a large rhino rocket. She tolerated this amazingly well. Related Data Home Medications ?Medication ?Instructions ?Recorded ?Confirmed apixaban 5 mg tablet (Eliquis) 5 mg PO BID 05/25/22 08/20/24 dronedarone 400 mg tablet (Multaq) 400 mg PO BID 05/25/22 08/20/24 aspirin 81 mg chewable tablet 81 mg PO DAILY 02/24/24 08/20/24 (Aspirin Childrens) cholecalciferol (vitamin D3) 50 50 mcg PO DAILY 02/24/24 08/20/24 mcg (2,000 unit) capsule rosuvastatin 5 mg tablet 5 mg PO DAILY 02/24/24 08/20/24 alendronate 70 mg tablet (Fosamax) 70 mg PO QWEEK 06/28/24 08/20/24 Previous Rx's ?Medication ?Instructions ?Recorded metoprolol succinate 50 mg 50 mg PO DAILY #30 tabs 02/24/24 tablet,extended release 24 hr (Toprol XL) Allergies Allergy/AdvReac Type Severity Reaction Status Date / Time iodine Allergy Verified 08/20/24 15:53 shellfish derived Allergy Verified 08/20/24 15:53 Review of Systems Status of ROS: Reports: 6 or more systems reviewed and unremarkable except as noted in History and below [facility] Medical History 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.72 - Dissection of iliac artery (ICD-10) Cardiomyopathy ?I42.9 - Cardiomyopathy, unspecified (ICD-10) Osteopenia ?M85.80 - Other specified disorders of bone density and structure, unspecified site (ICD-10) Diverticulosis of colon (without mention of hemorrhage) ?K57.30 - Diverticulosis of large intestine without perforation or abscess without bleeding (ICD-10) Tachycardia, unspecified ?R00.0 - Tachycardia, unspecified (ICD-10) Mitral valve disorder ?I05.9 - Rheumatic mitral valve disease, unspecified (ICD-10) Atrial fibrillation status post cardioversion ?I48.91 - Unspecified atrial fibrillation (ICD-10) Surgical History Hx of wisdom tooth extraction ?K08.409 - Partial loss of teeth, unspecified cause, unspecified class (ICD-10) Hx of mitral valve replacement ?Z95.2 - Presence of prosthetic heart valve (ICD-10) Hx of hysterectomy ?Z90.710 - Acquired absence of both cervix and uterus (ICD-10) S/P ablation of atrial fibrillation ?Z98.890 - Other specified postprocedural states (ICD-10) ?Z86.79 - Personal history of other diseases of the circulatory system (ICD-10) Social History Smoking Status: Never smoker Do you use any of these nicotine containing products: None How often do you have a drink containing alcohol: never How often do you have six or more drinks on one occasion: Never AUDIT-C Alcohol total score: 0 Non-prescribed substance use: denies use Caffeine: Yes Are you using contraception or practicing any form of control: No service: No Exam Narrative: Exam Narrative: Objective bleeding of the right nostril and rhino rocket was placed by myself. Const: Vital Signs, click to edit/add: Vital Signs - 24 hr 08/20/24 15:39 Pulse Rate [Right Pulse Oximeter] 76 Respiratory Rate 18 Blood Pressure [Le ft Upper Arm] 132/92 H Pulse Oximetry 94 Oxygen Delivery Me thod Room Air Course Vital Signs Vital signs: Initial Vital Signs Pulse Rate 76 08/20/24 15:39 Respiratory Rate 18 08/20/24 15:39 Blood Pressure 132/92 H 08/20/24 15:39 Blood Pressure Mean 105 08/20/24 15:39 Blood Pressure Position Sitting 08/20/24 15:39 Pulse Oximetry 94 08/20/24 15:39 Oxygen Delivery Method Room Air 08/20/24 15:39 Vital Signs Pulse Rate 76 08/20/24 15:39 Respiratory Rate 18 08/20/24 15:39 Blood Pressure 132/92 H 08/20/24 15:39 Pulse Oximetry 94 08/20/24 15:39 Oxygen Delivery Method Room Air 08/20/24 15:39 Pulse Rate 76 08/20/24 15:39 Respiratory Rate 18 08/20/24 15:39 Blood Pressure 132/92 H 08/20/24 15:39 Pulse Oximetry 94 08/20/24 15:39 Oxygen Delivery Method Room Air 08/20/24 15:39 Medical Decision Making MDM Narrative Medical decision making narrative: [age] female with the rhino rocket placement for epistaxis. The patient is on apixaban and aspirin she will hold aspirin for 3 days as mention at prior visit, and she will hold the apixaban tonight. The a the patient will be on Keflex 500 q.i.d. x5 days, would pull the rhino rocket in 2 days at primary care clinic. Return if recurrent bleeding should be observed for a period of time in the ER to make sure she has no further bleeding. She may require a nasal sling just to catch any dripping that might occur but I think at this point this will be an adequate treatment for her. Discharge Plan Discharge Clinical Impression: Epistaxis Patient Disposition: Home w/ Parent or Adult Condition: Improved Additional Instructions: Nasal pack removal if her primary care office in the next 2 days. Keflex 500 q.i.d. x5 days. Avoid nasal picking or blowing the nose. Avoid trauma to the nose. Return if needed. instymeds. Activity Level: Light activity Discharge Diet: Regular Prescriptions: No Action Multaq 400 mg tablet 400 mg PO BID Eliquis 5 mg tablet 5 mg PO BID alendronate [Fosamax] 70 mg tablet 70 mg PO QWEEK rosuvastatin 5 mg tablet 5 mg PO DAILY cholecalciferol (vitamin D3) 50 mcg (2,000 unit) capsule 50 mcg PO DAILY aspirin [Aspirin Childrens] 81 mg tablet,chewable 81 mg PO DAILY metoprolol succinate [Toprol XL] 50 mg tablet extended release 24 hr 50 mg PO DAILY Qty: 30 0RF Follow Up/Referrals: Myranda Case MD [Primary Care Provider, Family Practice] Stand Alone Forms: My[employer] Info Instructions
== END 2024-08-20 17:15 | disposition home or self-care (01) ==
LOC: ED 16:15
PROVIDERS: Emergency Provider Family Medicine; PCP Family Medicine
DX: R04.0 Epistaxis (principal); Z79.01 Long term (current) use of anticoagulants
CPT/HCPCS: 30901; 99283; A9270

== ENCOUNTER 2024-09-28 09:04 | Emergency (ER) | payer MEDICARE, OTHER, SELFPAY ==
--- OUTSIDE RECORDS SUMMARY | 2024-09-28 09:06 | XMS_ITS | Clinical Summary ---
Author Organization [employer] [facility] [employer] [facility] Address [address] [place] [address] Care Team Providers Care Department Clinician Name Role Phone Myranda Case MD Primary Care Prov ider Sage Hutchinson MD Unavailable Zachary Paz MD Unavailable Rasta Ramsey MD Unavailable [phone] Papa Harley MD Unavailable Estela Del Angel MD Unavailable [phone] Allergies Active Allergy Reactions Criticality Noted [...] by mouth once daily. 0 3 Active alendronate (Fosamax) 70 mg tabletIndications: Osteopenia, unspecified location Take 1 Tablet (70 mg) by mouth once a week in the morning. Take on empty stomach with full glass of water. Do not lie down for 1 hr. 12 Tablet 3 4 Active apixaban (ELIQUIS) 5 mg tabletIndications: Persistent atrial fibrillation (HC) Take 1 Tablet (5 mg) by mouth two times daily. DO NOT take on morning of 05/06/22 180 Tablet 3 5 Active metoprolol succinate (TOPROL XL) 50 mg sustained-release tabletIndications: Atrial tachycardia (HC) Take 1 Tablet (50 mg) by mouth once daily. 90 Tablet 3 5 Active rosuvastatin (CRESTOR) 5 mg tabletIndications: Paroxysmal atrial fibrillation (HC) Take 1 Tablet (5 mg) by mouth at bedtime. 90 Tablet 3 5 Active dronedarone 400 mg tab tabletIndications: Atrial fibrillation status post cardioversion (HC),Hyperthyroidi sm Take 1 Tablet (400 mg) by mouth two times daily with meals. 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 - amiodarone started - July 2020 amiodarone transitioned to dronedarone - [id number] score of at least 3 (age >65, female, cardiomyopathy) - on Eliquis 5 mg PO twice daily 08/22/2024 Stop ASA per cardiology Continue Eliquis Allergy history, radiographic dye 11/19/2019 Cardiomyopathy 10/05/2018 [...] Encounters Date Type Department Care Team Description 08/22/2024 2:30 PM CDT Office Visit [facility] [address] [place] [address] Myranda Case MD Follow Up 08/22/2024 Travel 08/21/2024 3:20 PM CDT Office Visit [facility] [address] [place] [address] Myranda Case MD Hospital F/U 08/21/2024 Travel 08/20/2024 Nurse Triage [facility] [address] [place] [address] [address] Myranda Case MD Nose Problem 08/14/2024 3:00 PM CDT Office Visit [facility] [address] [facility] [place] [address] Segundo Connor, DPM Post-op (Right 6 week post op, DOS 07/02/24) 08/14/2024 2:30 PM CDT Ancillary Procedure [facility] [address] [facility] [place] [address] 08/13/2024 11:24 AM CDT - 08/13/2024 11:59 PM CDT Hospital Encounter [address] [address] Atrial fibrillation status post cardioversion (HC); Cardiomyopathy; Persistent atrial fibrillation (HC); Tachycardia, unspecified 08/13/2024 11:00 AM CDT Office Visit [facility] [address] [place] [phone] Rasta Ramsey MD Follow Up (Annual f/u. 05/22 stress test. 04/04 echo. Pt states feeling good. No recent cardiac symptoms. Does feel her afib occasionally. ) 08/13/2024 Travel 08/09/2024 Travel 07/18/2024 9:00 AM CDT Office Visit [facility] [address] [facility] [place] [address] Segundo Connor, DPM Post-op (Right foot, DOS 07/02/24, 2 week post op) 07/18/2024 Travel 07/14/2024 Travel 07/04/2024 9:00 AM CDT Office Visit [facility] [address] [facility] [place] [address] Segundo Connor, DPM Post-op (Right foot, DOS 07/02/24, initial post op) 07/04/2024 8:45 AM CDT Ancillary Procedure [facility] [address] [facility] [place] [address] 07/04/2024 Travel 07/03/2024 Telephone [facility] [address] [place] [address] Segundo Connor DPM Surgical Followup 07/02/2024 7:00 AM CDT Office Visit [facility] [address] [place] [phone] Segundo Connor DPM Surgery Scheduled 07/02/2024 Orders Only [facility] Scanner 1 scan: (1-Ord) ANTELMO LAPIDUS BUNIONECTOMY RT, 07/02/2024 07/02/2024 Orders Only [facility] Scanner 1 scan: (1-Ord) ANTELMO XR FOOT RT 2V, 07/02/2024 06/30/2024 Travel from Last 3 Months Immunizations Immunization Administration Dates Next Due Amb Influenza, Inactivated A IIV4 (Age 65+ Years) Preserv Free 12/19/2019 COVID-19 VACCINE SPIKEVAX (M ODERNA 50MCG/0.5ML) 12YO+ PFS 06/28/2024,01/06/2024,09/22/2023,04/28 COVID-19 vaccine (Pfizer-Bio NTech 30mcg/0.3mL) 12YO+ BIVALENT [...] on file Legal Sex Female 6:25 AM SLIP CASTER Gender Identity Not on file Sexual Orientation Not on file Obstetrics History Para Term AB IAB SAB Ectopic Multiple Livin g Live Births 3 2 2 2 Date Outcome GA Total Labor Labor/2nd/3rd Weight Sex Type Anes PTL Jessica A1 A5 Name Clin Term Term Last Filed Vital Signs Vital Sign Reading Time Taken Comments Blood Pressure 100/67 08/22/2024 2:24 PM CDT Pulse 67 08/22/2024 2:24 PM CDT Temperature 36.6 C (97.9 F) 02/24/2024 10:45 AM SLIP CASTER Respiratory Rate 16 06/30/2023 11:14 AM CDT Oxygen Saturation 97% 08/22/2024 2:24 PM CDT Inhaled Oxygen Concentration - - Weight 51.7 kg (114 lb) 08/22/2024 2:24 PM CDT Height 158.8 cm (5' 2.5) 08/13/2024 10:47 AM CD T Body Mass Index 20.52 08/13/2024 10:47 AM CDT Plan of Treatment Upcoming Encounters Date Type Department Care Team (Late st Contact Info) Description 10/09/2024 1:15 PM CDT Office Visit [facility] [address] [place] [address] Segundo Connor DPM [address] [place] [address] 03/25/2025 10:55 AM SLIP CASTER Office Visit [facility] [address] [address] [place] [address] [place] [address] Health Maintenance Due Date Last Done Comments Mammogram for age 45-75 11/13/2024 11/14/19, 11/12/2022, 11/11/2021, Additional history exists Influenza Vaccine (#1) 2024 , 12/23/2021, 12/08/2020, Additional history exists Depression screening for age [...] Additional history exists Tetanus booster 10/30/2030 10/30/2020, 08/0 06/2010, 10/17/2001 Hepatitis C screening for age 18-79 Completed 07/22/2014 Pneumococcal series for age 50+ Completed 10/05/2018, 09/06/2016, 01/19/2002 Zoster (shingles) series for age 50+ Completed 03/19/2019, 10/05/2018, 11/10/2010 (IA) Tdap Completed 10/30/2020, 10/29/2010 RSV vaccine for adults or Completed 01/19/2023 DEXA/DXA scan for age 65+ Completed 2023, [...] SCAN-OPERATIVE/PROC EDURE REPORT 07/02/2024 12:00 AM CDT SDNA-FIT EXTERNAL (COLOGUARD) Routine 02/02/2024 6:30 AM SLIP CASTER Screening for colon cancer XR DXA BONE [...] For Patients: As a result of the s Act, medical imagingexams and procedure reports are [...] MD @ 08/14/2024 2:53:48 PM (Electronically Signed) us Segundo Connor DPM GENERAL IMAGING Final Res ult * (ABNORMAL) CREATININE (08/13/2024 11:40 AM CDT) eGFR 66(L) >90 mL/min/1.7 3m2 08/13/2024 12:04 PM CDT [facility] Comment:As of 2021, eG FR is calculated by the CKD-EPI creatinine equation without race adjustment. eGFR can be influenced by muscle mass, exercise, and diet. The reported eGFR is an estimation only and is only applicable if the renal function is stable. CREATININE 0.92(H) 0.50 - 0.90 mg/dL 08/13/2024 12:04 PM CDT [facility] Blood BLOOD SPECIMEN / Unknown Venipuncture / Unknown 08/13/2024 11:40 AM CDT 08/13/2024 11:40 AM CDT Rasta Ramsey MD CHEMISTRY Fin al Result [address] [address] * ALT (SGPT) (08/13/2024 11:40 AM CDT) ALT (SGPT) 12 10 - 35 IU/L 08/13/2024 12:04 PM CDT [facility] Blood BLOOD SPECIMEN / Unknown Venipuncture / Unknown 08/13/2024 11:40 AM CDT 08/13/2024 11:40 AM CDT us Rasta Ramsey MD CHEMISTRY Fin al Result Performing Organization Address City/[facility]/ZIP Co de Phone Number [address] [address] * AST (SGOT) (08/13/2024 11:40 AM CDT) AST (SGOT) 22 10 - 35 IU/L 08/13/2024 12:04 PM CDT [facility] Blood BLOOD SPECIMEN / Unknown Venipuncture / Unknown 08/13/2024 11:40 AM CDT 08/13/2024 11:40 AM CDT us Rasta Ramsey MD CHEMISTRY Fin al Result Performing Organization Address [facility] [[email or web address]] de Phone Number [address] [address] * EKG 12 LEAD (08/13/2024 10:40 AM CDT) Interpretation Normal sinus rhythm Left axis deviation Incomplete right bundle branch block Abnormal ECG When compared with ECG of 23-Mar-2024 14:38, Incomplete right bundle branch block is now Present Ventricular Rate 64 BPM Atrial Rate 64 BPM P-R Interval 170 ms QRS Duration 102 ms QT 448 ms QTc 462 ms P [place] 87 degrees R [place] -61 degrees T [place] 77 degrees 08/13/2024 10:4 0 AM CDT 08/16/2024 7:56 PM CDT us Rasta Ramsey MD EKG ORD Fin al Result * SCAN-RADIOLOGY REPORT (07/02/2024 12:00 AM CDT) Anatomical Region Laterality Modality Other us Scanner OTHER Final Result * SCAN-OPERATIVE/PROCEDURE REPORT (07/02/2024 12:00 AM CDT) us Scanner OTHER Final Result * SDNA-FIT EXTERNAL (COLOGUARD) (02/02/2024 6:30 AM SLIP CASTER) NONINV COLON CA DNA+OCC BLD SCRN STL-IMP Negative Negative 02/09/2024 11:32 PM SLIP CASTER [employer] (CLIA #:[id number]) Comment: NEGATIVE TEST RESULT. A negative Cologuard [...] Cook et al, N Engl J Med 2014;370(14):2590-5648) The normal value (reference range) for this assay is negative. COLOGUARD RE-SCREENING RECOMMENDATION: Periodic colorectal cancer screening is an important part of preventive healthcare for asymptomatic individuals at average risk for colorectal cancer. Following a negative Cologuard result, the [place] [employer] and U.S. Multi-Society Task Force screening guidelines recommend a Cologuard re-screening interval of 3 years. References: [place] [employer] Guideline for Colorectal Cancer Screening: https://www.cancer.org/cancer/avkft-asxaeu-uoyymk/ndqioyjay-okeguqppz-hhhhyqh/ac s-rec ommendations.html.; Claudio OGDNE, Marifer PECK, Kathie ZhengK, Colorectal Cancer Screening: Recommendations for Physicians and Patients from the U.S. Multi-Society Task Force on Colorectal Cancer Screening , Am J Gastroenterology 2017; 112:1108-8061. TEST DESCRIPTION: Composite algorithmic analysis of stool [...] Cook et al, N Engl J Med 2014;370(14):6621-7345.) Cologuard may produce a false negative or false positive result (no colorectal cancer or precancerous polyp present at colonoscopy follow up). A negative Cologuard test result does not guarantee the absence of CRC or advanced adenoma (pre-cancer). The current Cologuard screening interval is every 3 years. ([place] [employer] and U.S. Multi-Society Task Force). Cologuard performance data in a 10,000 patient pivotal study using colonoscopy as the reference method can be accessed at the following location: www.Regen/results. Additional description of the Cologuard test process, warnings and precautions can be found at www.cologuard.com. Stool specimen (specimen) (Rectum) 02/02/2024 6:30 AM SLIP CASTER 02/04/2024 12:24 PM SLIP CASTER us Myranda Case MD URINE Fi nal Result [employer] (CLIA #:[id number]) [place] [address], * (ABNORMAL) XR DXA BONE DENSITY 2 SITES AXIAL (01/25/2024 9:07 AM CDT) Anatomical Region Laterality Modality Spine, HIPS, HIPL, HIPR Other Impressions 01/31/2024 2:02 PM SLIP CASTER Osteopenia. RECOMMENDATIONS: The National Osteoporosis Foundation recommends [...] to assess therapeutic efficacy. Essie Mayer PA-C [facility] 01/31/2024 Narrative 01/31/2024 2:02 PM SLIP CASTER For Patients: Results are automatically released to your [facility] ([employer]) account once available, in compliance with federal regulations. This means that you may see your results before your provider has had a chance to review them. Please allow 2-3 business days for your provider to comment on the results. XR DXA Bone Mineral Density (BMD) EXAM LOCATION: [address] [address] PATIENT NAME: Adela Holbrook DATE OF : 1950 EXAM DATE: 01/25/2024 REQUESTING PROVIDER: Myranda Case MD GENDER AT : female HEIGHT: 5' 2.5 (01/24/2024) WEIGHT: 110 lb (01/24/2024) MENOPAUSAL STATUS: Postmenopausal RACE/ETHNICITY: White RISK FACTORS: Family History of Osteoporosis, Weight < 127 lbs., and White Race CURRENT MEDICATION FOR BONE LOSS: NONE INDICATION: Post-Menopause COMPARISON DATE(S): 2017 DXA scans are compared to prior studies for a patient only when the two (or more) studies were performed on the same scanner. It is not possible to compare data generated on one scanner to data from another because there are not standards in DXA equipment. This applies even if the two scanners are made by the same ob gyn. PROCEDURE: Dual-energy x-ray absorptiometry performed with routine [...] hip fracture: 3.1%. Myranda Case MD DEXA Fi nal Result * LIPID PANEL W REFLEX MEASURED LDL (01/24/2024 9:58 AM CDT) [facility] CHOLESTEROL, TOTAL 134 <200 mg/dL [facility] [...] LDL-C. Serafin SS et al. JEROMY. 2013;310(19): 7596-3668 (http://education.TRIRIGA/faq/WHZ198) CHOL/HDLC RATIO 1.7 <5.0 (calc) [facility] NON HDL CHOLESTEROL 57 <130 mg/dL (calc) [facility] Comment: For patients with diabetes plus 1 major ASCVD risk factor, treating to a non-HDL-C goal of <100 mg/dL (LDL-C of <70 mg/dL) is considered a therapeutic option. Blood BLOOD SPECIMEN / Unknown 01/24/2024 9:58 AM CDT 01/24/2024 9:58 AM CDT Myranda Case MD CHEMISTRY Fi nal Result [employer] [facility] [address] [place] [address], [facility] [address] [place] [address] * XR MAMMO NASH BILAT SCREEN (11/14/2023 [...] For Patients: As a result of the 21st Century Cures Act, medical imaging exams and procedure reports are released immediately into your electronic medical record. You may view this report before your referring provider. If you have questions, please contact your health care provider. XR MAMMO NASH BILAT SCREEN [[id number]] CLINICAL HISTORY: This is an asymptomatic 73 y.o. patient. INDICATION FOR EXAM: Mammogram Screening. TECHNIQUE: CC & MLO views were obtained. This study was evaluated with the assistance of Computer-Aided Detection. Breast Tomosynthesis was used in interpretation. COMPARISON FILM: Yes 11/12/22 [facility] 11/11/21 [facility] FINDINGS: There are scattered areas of fibroglandular density. There are no dominant masses, suspicious micro calcifications or areas of architectural distortion. Myranda Case MD MAMMO Fi nal Result * ANTI HCV [[id number]] (07/22/2014 10:21 AM CDT) HEPATITIS C ANTIBODY Non-Reacti ve Non-Reacti ve 07/22/2014 4:44 PM CDT [facility] Blood specimen (specimen) BLOOD SPECIMEN / Unknown Venipuncture / Unknown 07/22/2014 10:21 AM CDT 07/22/2014 10:21 AM CDT Narrative [facility] - 07/22/2014 4:44 PM CDT Antibodies to HCV not detected; does not exclude the possibility of exposure to HCV. Myranda Case MD SEND OUTS Fi nal Result [facility] [address] [place] [address], from Last 3 Months or Most Recently Relevant to Health Maintenance Insurance [employer] MR PB ONLY [employer] HB MEDICARE PART B HB ONLY MEDICARE PART A HB ONLY Advance Directives Documents on File Type Date Recorded Patient Glacing Machine Tender Expl anation Healthcare Directive 04/29/2022 023 * [...] Comments Code Status Discussion: Discussed Care Teams Department Clinician Relationship Specialty Start Date End Date Myranda Case MD [address] [place] [address] PCP - General 08/19/05 Sage Hutchinson MD [address] [place] [address] Cardiology Cardiovascular Disease 08/31/11 Zachary Paz MD [address] [place] [address] Otolaryngology Surgery - Otolaryngology 02/15/13 Rasta Ramsey MD [address] [facility] [address] [place] [address] Cardiovascular Disease 11/04/21 Papa Harley MD [address] [facility] [address] [place] [address] Cardiovascular Disease 01/11/22 [place] [address] [place] [address] Endocrinology Endocrinology 03/19/24
[2024-09-28 09:13] VITALS: BP 119/78; PULSE 66; RESP 18; TEMP 36.7; O2SAT 96; BMI 20.5
--- NOTE | 2024-09-28 09:45 | ED.GENADULT ---
HPI - General Adult General Chief complaint: Nose Injury/Pain Stated complaint: nose bleed Time Seen by Provider: 09/28/24 09:35 History of Present Illness HPI narrative: This 74-year-old female comes in because of a nose bleed that began about 2 hours prior to arrival. She is on Eliquis and states that she had a nosebleed about a month ago that was treated with silver nitrate but after about 3 hours she had rebleeding and needed to return. She has been without nose bleed until this morning. She does have a nasal clamp and has been using that but when she removes that rebleeding seems to occur. Initially she was swallowing some blood but now she feels that as long as the nasal clamp is in place there is no sign of ongoing bleeding. She does not report any lightheadedness or shortness of breath. She arrives here with normal vital signs. Related Data Home Medications ?Medication ?Instructions ?Recorded ?Confirmed apixaban 5 mg tablet (Eliquis) 5 mg PO BID 05/25/22 09/28/24 dronedarone 400 mg tablet (Multaq) 400 mg PO BID 05/25/22 09/28/24 cholecalciferol (vitamin D3) 50 50 mcg PO DAILY 02/24/24 09/28/24 mcg (2,000 unit) capsule rosuvastatin 5 mg tablet 5 mg PO DAILY 02/24/24 09/28/24 alendronate 70 mg tablet (Fosamax) 70 mg PO QWEEK 06/28/24 09/28/24 Previous Rx's ?Medication ?Instructions ?Recorded metoprolol succinate 50 mg 50 mg PO DAILY #30 tabs 02/24/24 tablet,extended release 24 hr (Toprol XL) Allergies Allergy/AdvReac Type Severity Reaction Status Date / Time iodine Allergy Verified 09/28/24 09:17 shellfish derived Allergy Verified 09/28/24 09:17 Review of Systems Status of ROS: Reports: 10 or more systems reviewed and unremarkable except as noted in History and below Narrative: Constitutional: No fevers, no weight gain or loss. Eyes: No discharge. No vision changes. HENT: No congestion, no sore throat, no ear pain. Cardiovascular: No chest pain, no palpitations. Respiratory: No shortness of breath, no wheezes, no cough. Gastrointestinal: No abdominal pain, no vomiting, no diarrhea. Genitourinary: No dysuria, no hematuria. Musculoskeletal: Normal range of motion. Skin: No rashes, no pruritis. Neurological: No dizziness, weakness, sensory change, speech change. Endo/Heme/Allergies: No bruising or bleeding. No polydipsia. Pysch: no suicidality, no anxiety, no insomnia. All other systems reviewed and are negative. [facility] Medical History 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.72 - Dissection of iliac artery (ICD-10) Cardiomyopathy ?I42.9 - Cardiomyopathy, unspecified (ICD-10) Osteopenia ?M85.80 - Other specified disorders of bone density and structure, unspecified site (ICD-10) Diverticulosis of colon (without mention of hemorrhage) ?K57.30 - Diverticulosis of large intestine without perforation or abscess without bleeding (ICD-10) Tachycardia, unspecified ?R00.0 - Tachycardia, unspecified (ICD-10) Mitral valve disorder ?I05.9 - Rheumatic mitral valve disease, unspecified (ICD-10) Atrial fibrillation status post cardioversion ?I48.91 - Unspecified atrial fibrillation (ICD-10) Surgical History Hx of wisdom tooth extraction ?K08.409 - Partial loss of teeth, unspecified cause, unspecified class (ICD-10) Hx of mitral valve replacement ?Z95.2 - Presence of prosthetic heart valve (ICD-10) Hx of hysterectomy ?Z90.710 - Acquired absence of both cervix and uterus (ICD-10) S/P ablation of atrial fibrillation ?Z98.890 - Other specified postprocedural states (ICD-10) ?Z86.79 - Personal history of other diseases of the circulatory system (ICD-10) Social History Smoking Status: Never smoker Do you use any of these nicotine containing products: None How often do you have a drink containing alcohol: never How often do you have six or more drinks on one occasion: Never AUDIT-C Alcohol total score: 0 Non-prescribed substance use: denies use Caffeine: Yes Are you using contraception or practicing any form of control: No service: No Exam Narrative: Exam Narrative: Constitutional: Well-developed, well-nourished, no acute distress. HEENT: Active bleeding from the right nostril when the nasal clamp is removed. When the clamp is in place there is no sign of ongoing bleeding. Oropharynx appears normal. Neck: Normal range of motion. Nontender. Supple. Heart: Regular. No murmurs. Normal rate. Intact distal pulses. Lungs: Clear to auscultation. No chest discomfort. No wheezes, rhonchi, or rales. Abdomen: Normal bowel sounds. Nontender. No rebound tenderness. Genitalia: Deferred. Back: No midline tenderness. Normal range of motion. Extremities: Normal range of motion. No injury. Skin: Intact. No rash. Warm. No erythema or pallor. Neurologic: No altered sensation. No weakness. Alert and oriented. Psychiatric: No suicidality. No anxiety or depression. No insomnia. Nursing notes and vitals signs are reviewed. Const: Vital Signs, click to edit/add: Vital Signs - 24 hr 09/28/24 09:13 Temperature 98.0 F Pulse Rate [Right Pulse Oximeter] 66 Respiratory Rate 18 Blood Pressure [Ri ght Upper Arm] 119/78 Pulse Oximetry 96 Oxygen Delivery Me thod Room Air Course Vital Signs Vital signs: Initial Vital Signs Temperature 98.0 F 09/28/24 09:13 Temperature Source Temporal Artery Scan 09/28/24 09:13 Pulse Rate 66 09/28/24 09:13 Respiratory Rate 18 09/28/24 09:13 Blood Pressure 119/78 09/28/24 09:13 Blood Pressure Mean 91 09/28/24 09:13 Blood Pressure Position Sitting 09/28/24 09:13 Pulse Oximetry 96 09/28/24 09:13 Oxygen Delivery Method Room Air 09/28/24 09:13 Vital Signs Temperature 98.0 F 09/28/24 09:13 Pulse Rate 66 09/28/24 09:13 Respiratory Rate 18 09/28/24 09:13 Blood Pressure 119/78 09/28/24 09:13 Pulse Oximetry 96 09/28/24 09:13 Oxygen Delivery Method Room Air 09/28/24 09:13 Temperature 98.0 F 09/28/24 09:13 Pulse Rate 66 09/28/24 09:13 Respiratory Rate 18 09/28/24 09:13 Blood Pressure 119/78 09/28/24 09:13 Pulse Oximetry 96 09/28/24 09:13 Oxygen Delivery Method Room Air 09/28/24 09:13 Medications Administered Medications: Generic Name Dose Route Start Last Admin Trade Name Hiral PRN Reason Stop Dose Admin Oxymetazoline HCl 1 spray 09/28/24 09:45 09/28/24 09:55 Oxymetazoline 0.05% Nasal [place] NOSTRIL-B 1 spray BID PRN Administration Medical Decision Making MDM Narrative Medical decision making narrative: This patient has persistent epistaxis complicated by Eliquis therapy. A nasal clamp is affective to stop the bleeding indicating an anterior bleed. The patient did receive Afrin in the right nostril along with the nasal clamp. Recheck after about half an hour showed no sign of active bleeding. Instructions were given to the patient regarding what can be done if rebleeding occurs. Discharge Plan Discharge Clinical Impression: Acute anterior epistaxis Patient Disposition: Home, Self-Care Condition: Stable Additional Instructions: Use nasal clamp and Afrin if rebleeding occurs. Follow up with MD return if persistent or worsening symptoms occur. Prescriptions: No Action Multaq 400 mg tablet 400 mg PO BID Eliquis 5 mg tablet 5 mg PO BID alendronate [Fosamax] 70 mg tablet 70 mg PO QWEEK rosuvastatin 5 mg tablet 5 mg PO DAILY cholecalciferol (vitamin D3) 50 mcg (2,000 unit) capsule 50 mcg PO DAILY metoprolol succinate [Toprol XL] 50 mg tablet extended release 24 hr 50 mg PO DAILY Qty: 30 0RF Follow Up/Referrals: Myranda Case MD [Primary Care Provider, Family Practice] [facility] Inst[facility]
[2024-09-28] MEDS: OXYMETAZOLINE 0.05% NASAL SPRAY 1 SPRAY NOSTRIL-B (09:55)
== END 2024-09-28 10:49 | disposition home or self-care (01) ==
LOC: ED 10:01
PROVIDERS: Emergency Provider Emergency Medicine Emergency Medical Services; PCP Family Medicine
DX: R04.0 Epistaxis (principal); Z79.01 Long term (current) use of anticoagulants
CPT/HCPCS: 99282; 99283; 99284

== ENCOUNTER 2025-02-26 04:48 | Emergency (ER) | payer MEDICARE, OTHER, SELFPAY ==
[2025-02-26] VITALS (8 sets, daily range): BP systolic 117–132; BP diastolic 91–99; PULSE 98–108; RESP 18–24; TEMP 36.5; O2SAT 90–97; BMI 19.5
--- OUTSIDE RECORDS SUMMARY | 2025-02-26 04:51 | XMS_ITS | Clinical Summary ---
Author Organization [facility] Address [address] [place] [address] Care Team Providers Care Canal Equipment Mechanic Name Role Phone Myranda Case MD Primary Care Prov ider Sage Hutchinson MD Unavailable Zachary Paz MD Unavailable Rasta Ramesy MD Unavailable Papa Harley MD Unavailable Estela Del Angel MD Unavailable [phone] Allergies Active Allergy Reactions Criticality Noted [...] by mouth once daily. 0 3 Active rosuvastatin (CRESTOR) 5 mg tabletIndications :Paroxysmal atrial fibrillation (HC) Take 1 Tablet (5 mg) by mouth at bedtime. 90 Tablet 3 5 Active dronedarone 400 mg tab tabletIndications :Atrial fibrillation status post cardioversion (HC),Hyperthyroid ism Take 1 Tablet (400 mg) by mouth two times daily with meals. 180 Tablet 3 5 Active apixaban (ELIQUIS) 5 mg tabletIndications :Persistent atrial fibrillation (HC) Take 1 Tablet (5 mg) by mouth two times daily. 180 Tablet 3 5 Active metoprolol succinate (TOPROL XL) 50 mg sustained-release tabletIndications :Atrial tachycardia (HC) Take 1 Tablet (50 mg) by mouth once daily. 90 Tablet 3 5 Active alendronate (Fosamax) 70 mg tabletIndications :Osteopenia, unspecified location Take 1 Tablet (70 mg) by mouth once a week in the morning. Take on empty stomach with full glass of water. Do not lie down for 1 hr. 12 Tablet 3 5 Active alendronate (Fosamax) 70 mg tabletIndications :Osteopenia, unspecified location Take 1 Tablet (70 mg) by mouth once a week in the morning. Take on empty stomach with full glass of water. Do not lie down for 1 hr. 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 [address] [place] [address] Arrived 02/25/2025 Travel 02/14/2025 Telephone [facility] [address] [place] [address] Papa Harley MD Atrial Fibrillation (Needs cardioversion ) 01/30/2025 Travel 01/25/[address] [facility] [address] [facility] [place] [address] Myranda Case MD 1 scan: (1-Ord) [id number]-10.29.25 01/24/2025 9:00 AM CDT Office Visit [facility] [address] [place] [address] Myranda Case MD Medicare ANNUAL (subsequent) Visit (74 yo female) 01/24/2025 Travel 01/19/2025 Travel 01/10/2025 Telephone [facility] [place] [address] Papa Harley MD Medication Management 11/28/2024 8:30 AM CDT Office Visit [facility] [address] [place] [address] [facility] (recheck) 11/28/2024 Travel from Last 3 Months Immunizations Immunization Administration Dates Next Due Amb Influenza, Inactivated A IIV4 (Age 65+ Years) Preserv Free 12/19/2019 COVID-19 VACCINE MNEXSPIKE ( MODERNA 10MCG/0.2ML) 12YO+ PFS 12/12/2024 COVID-19 VACCINE SPIKEVAX (M ODERNA 50MCG/0.5ML) 12YO+ [...] Inactivated IIV3 (Age 65+ Years) Preserv Free 12/11/2024,01/06/2024 Pneumococcal Poly,23-Valent (Pneumovax) 10/05/2018,01/19/2002 Pneumococcal conj 13-Valent [...] Answer Date Recorded PHQ-2 TOTAL SCORE 0 01/24/2025 Social Connections Answer Date Recorded Do you often feel lonely or isolated from those around you? 0 01/19/2025 Alcohol Use Answer Date Recorded How often do you have a drink containing alcohol ? 0 01/24/2025 Average Number of Drinks Not on file 025 How often do you have five or more drinks on one occasion? 0 01/24/2025 Financial Resource Strain Answer Date R ecorded Difficulty of Paying Living Expenses 3 01/19/2025 Difficulty of Paying Living Expenses Not on file 01/19/2025 Food Insecurity Answer Date Recorded Do you worry your food will run out before you are able to buy more? 1 01/19/2025 Transportation Needs Answer Date Record ed Does lack of transportation keep you from medica l appointments? 1 01/19/2025 Does lack of transportation keep you from work, meetings or getting things that you need? 1 01/19/2025 Housing Stability Answer Date Recorded What is your housing situation today? 1 01/19/2025 Interpersonal Safety Answer Date Record ed Are you being hit, kicked, p ushed or yelled at (see row info)? No 03/23/2024 Interpersonal Safety Abuse 12 - 18 Not on file 03/23/2024 Interpersonal Safety Ambulatory Vulnerability No t on file 03/23/2024 Utilities Answer Date Recorded Do you have trouble paying f or utilities (for example, heat, electricity, water, phone)? 1 01/19/2025 Comments No Sex and Gender Information Value Date Recorded Sex Assigned at Not on file Legal Sex Female 6:25 AM VACUUM DRUM DRIER OPERATOR Gender Identity Not on file Sexual Orientation Not on file Travel History Travel Start Travel End [place] 02/02/2025 02/24/2025 Obstetrics History Para Term AB IAB SAB Ectopic Multiple Livin g Live Births 3 2 2 2 Date Outcome GA Total Labor Labor/2nd/3rd Weight Sex Type Anes PTL Jessica A1 A5 Name Clin Term Term Last Filed Vital Signs Vital Sign Reading Time Taken Comments Blood Pressure 113/78 01/24/2025 9:10 AM CDT Pulse 104 01/24/2025 9:10 AM CDT Temperature 36.6 C (97.9 F) 02/24/2024 10:45 AM VACUUM DRUM DRIER OPERATOR Respiratory Rate 16 06/30/2023 11:14 AM CDT Oxygen Saturation 97% 01/24/2025 9:10 AM CDT Inhaled Oxygen Concentration - - Weight 50.1 kg (110 lb 6.4 oz) 01/24/2025 9:10 A M CDT Height 159.4 cm (5' 2.75) 01/24/2025 9:10 AM CD T Body Mass Index 19.71 01/24/2025 9:10 AM CDT Plan of Treatment Upcoming Encounters Date Type Department Care Team (Late st Contact Info) Description 02/27/2025 2:00 PM VACUUM DRUM DRIER OPERATOR Appointment [facility] [address] [place], [place] [id number] 03/25/2025 10:55 AM VACUUM DRUM DRIER OPERATOR Office Visit [facility] [address] [facility] [address] [place] [address] [place] [address] [place] [address] 04/03/2025 9:30 AM VACUUM DRUM DRIER OPERATOR Office Visit [facility] [place] [facility] [address] [place] [address] Papa Harley MD [facility] [address] [place], [place] [address] Health Maintenance Due Date Last Done Comments COVID-19 vaccine series ( season) 2025 12/12/2024, 06/28/2024, 01/06/2024, Additional history exists Mammogram for age 45-75 10/29/2025 10/30/19, 11/14/2023, 11/12/2022, Additional history exists BMI (ht and wt on same day) for age 18+ 01/24/2026 01/24/2025, 08/13/2024, 01/24/2024, Additional history exists Depression screening for age 12+ 01/24/2026 01/24/2025, 01/25/2024, 01/24/2024, Additional history exists Medicare Wellness for age 65+ 01/25/2026 01/24/2025, 01/24/2024, 01/18/2023, Additional history exists Fecal testing sDNA-FIT (Cologuard) for age 45-75 02/01/2027 02/02/2024 Lipids for age 45-75 01/24/2030 01/24/2025, 01/24/2024, 10/26/2022, Additional history exists Tetanus booster 10/30/2030 10/30/2020, 08/0 06/2010, 10/17/2001 Hepatitis C screening for age 18-79 Completed 07/22/2014 Pneumococcal series for age 50+ Completed 10/05/2018, 09/06/2016, 01/19/2002 Zoster (shingles) series for age 50+ Completed 03/19/2019, 10/05/2018, 11/10/2010 RSV vaccine for adults or Completed 01/19/2023 DEXA/DXA scan for age 65+ Completed 2023, 11/03/2017, 10/31/2012, Additional history exists Influenza Vaccine Completed 12/11/2024, , 12/23/2021, Additional history exists Hepatitis B series for 19+ Aged Out N o longer eligible based on patient's age to complete this topic Procedures Procedure Name Priority Date/Time Associated Diagnosis Comments US NECK OR HEAD SOFT TISSUE Routine 02/25/2025 12:55 PM VACUUM DRUM DRIER OPERATOR Neck mass Pulsatile neck mass EKG 12 LEAD Routine 01/25/2025 6:59 AM CDT Irregular heart beat [place] READING EKG - NO CHARGE, COMP ONLY Routine 01/25/2025 6:58 AM CDT Irregular heart beat LIPID PANEL W REFLEX MEASURED LDL Routine 01/24/2025 10:15 AM CDT Paroxysmal atrial fibrillation (HC) Heart disease, unspecified TSH WITH REFLEX Routine 01/24/2025 10:15 AM CDT Irregular heart beat BASIC METABOLIC PANEL Routine 01/24/2025 10:15 AM CDT Atrial tachycardia (HC) Paroxysmal atrial fibrillation (HC) XR MAMMO NASH BILAT SCREEN Routine 10/29/2024 3:42 PM CDT Known health problems: none SDNA-FIT EXTERNAL (COLOGUARD) Routine 02/02/2024 6:30 AM VACUUM DRUM DRIER OPERATOR Screening for colon cancer XR DXA BONE DENSITY 2 SITES AXIAL Routine 01/25/2024 9:07 AM CDT Post-menopausal ANTI HCV Routine 07/22/2014 10:21 AM CDT Need for hepatitis C screening test from Last 3 Months or Most Recently Relevant to Health Maintenance Results * US NECK OR HEAD SOFT TISSUE (02/25/2025 12:55 PM VACUUM DRUM DRIER OPERATOR) Anatomical Region Laterality Modality NECK Ultrasound 02/25/2025 2:58 PM VACUUM DRUM DRIER OPERATOR Narrative 02/25/2025 2:58 PM VACUUM DRUM DRIER OPERATOR For Patients: As a result of the Cures Act, medical imaging exams and procedure reports are released immediately into your electronic medical record. You may view this report before your referring provider. If you have questions, please contact your health care provider. Indication: Pulsatile neck mass Technique: Grayscale and color Doppler ultrasound of the left neck soft tissues performed in the area of concern. Comparison: None Findings: Normal jugular bulb noted without intraluminal thrombus. No solid mass. Impression: No suspicious findings. Dictated by Matt Gunter MD @ 02/25/2025 2:58:40 PM (Electronically Signed) Procedure Note Matt Gunter MD - 12/01/2025 For Patients: As a result of the Cures Act, medical imagingexams and procedure reports are released immediately into your electronicmedical record. You may view this report before your referring provider.If you have questions, please contact your health care provider. Indication: Pulsatile neck mass Technique: Grayscale and color Doppler ultrasound of the left neck soft tissuesperformed in the area of concern. Comparison: None Findings: Normal jugular bulb noted without intraluminal thrombus. No solid mass. Impression: No suspicious findings. Dictated by Matt Gunter MD @ 02/25/2025 2:58:40 PM (Electronically Signed) Myranda Case MD US Fi nal Result * EKG 12 LEAD (01/25/2025 6:59 AM CDT) Myranda Case MD EKG ORD Fi nal Result * NJ READING EKG - NO CHARGE, COMP ONLY (01/25/2025 6:58 AM CDT) Myranda Case MD PB - PROVIDER READ INGS Final Result * TSH WITH REFLEX (01/24/2025 10:15 AM CDT) Pathologist [facility] TSH W/REFLEX TO FT4 1.47 0.40 - 4.50 mIU/L 01/25/2025 3:55 AM CDT [facility] Blood BLOOD SPECIMEN / Unknown [facility] / Unknown 01/24/2025 10:15 AM CDT 01/24/2025 10:15 AM CDT Myranda Case MD CHEMISTRY Fi nal Result [facility] [address] [place] [address], * LIPID PANEL W REFLEX MEASURED LDL (01/24/2025 10:15 AM CDT) Pathologist [facility] CHOLESTEROL, TOTAL 124 <200 mg/dL 01/25/2025 4:53 AM CDT [facility] TRIGLYCERIDES 87 <150 mg/dL 01/25/2025 4:53 AM CDT [facility] HDL CHOLESTEROL 65 > OR = 50 mg/dL 01/25/2025 4:53 AM CDT [facility] NON HDL CHOLESTEROL 59 <130 mg/dL (calc) 01/25/2025 4:53 AM CDT [facility] Comment: For patients with diabetes plus 1 major ASCVD risk factor, treating to a non-HDL-C goal of <100 mg/dL (LDL-C of <70 mg/dL) is considered a therapeutic option. CHOL/HDLC RATIO 1.9 <5.0 (calc) 01/25/2025 4:53 AM CDT [facility] LDL-CHOLESTEROL 42 mg/dL (calc) 01/25/2025 4:53 AM CDT [facility] Comment: Reference range: <100 Desirable range <100 mg/dL for primary prevention; <70 mg/dL for patients with CHD or diabetic patients with > or = 2 CHD risk factors. LDL-C is now calculated using the Dafne calculation, which is a validated novel method providing better accuracy than the Friedewald equation in the estimation of LDL-C. Serafin SS et al. JEROMY. 2013;310(19): 8193-8363 (http://education.SportsCstr.GlobalLab/faq/VWL372) Blood BLOOD SPECIMEN / Unknown [facility] / Unknown 01/24/2025 10:15 AM CDT 01/24/2025 10:15 AM CDT Myranda Case MD CHEMISTRY Fi nal Result [facility] [address] [place] [address], * (ABNORMAL) BASIC METABOLIC PANEL (01/24/2025 10:15 AM CDT) SODIUM 142 135 - 146 mmol/L 01/25/2025 4:53 AM CDT [facility] POTASSIUM 4.9 3.5 - 5.3 mmol/L 01/25/2025 4:53 AM CDT [facility] CARBON DIOXIDE 27 20 - 32 mmol/L 01/25/2025 4:53 AM CDT [facility] GLUCOSE 89 65 - 99 mg/dL 01/25/2025 4:53 AM CDT [facility] Comment: Fasting reference interval CALCIUM 9.3 8.6 - 10.4 mg/dL 01/25/2025 4:53 AM CDT [facility] CREATININE 1.26(H) 0.60 - 1.00 mg/dL 01/25/2025 4:53 AM CDT [facility] BUN/CREATININE RATIO 21 6 - 22 (calc) 01/25/2025 4:53 AM CDT [facility] EGFR 45(L) > OR = 60 mL/min/1. 73m2 01/25/2025 4:53 AM CDT [facility] UREA NITROGEN (BUN) 26(H) 7 - 25 mg/dL 01/25/2025 4:53 AM CDT [facility] ELECTROLYTE BALANCE 8 7 - 17 mmol/L (calc) 01/25/2025 4:53 AM CDT [facility] CHLORIDE 107 98 - 110 mmol/L 01/25/2025 4:53 AM CDT [facility] Blood BLOOD SPECIMEN / Unknown [facility] / Unknown 01/24/2025 10:15 AM CDT 01/24/2025 10:15 AM CDT Myranda Case MD CHEMISTRY Fi nal Result [facility] [address] [address], * XR MAMMO NASH BILAT SCREEN (10/29/2024 3:42 PM CDT) Anatomical Region Laterality Modality BREASTS, Breast Left, Breast Right Bilateral Mammography Impressions 10/30/2024 4:29 PM CDT There is no radiographic evidence for malignancy. Recommend annual mammograms. MAMMOGRAM ASSESSMENT: ACR 1 Negative PATIENTS: You will also receive a letter with your examination results in an easy to read format. If you have questions about your results, please contact your referring provider. Narrative 10/30/2024 4:29 PM CDT For Patients: As a result of the 21st Century Cures Act, medical imaging exams and procedure reports are released immediately into your electronic medical record. You may view this report before your referring provider. If you have questions, please contact your health care provider. XR MAMMO NASH BILAT SCREEN [[id number]] CLINICAL HISTORY: This is an asymptomatic 74 y.o. patient. INDICATION FOR EXAM: Mammogram Screening. TECHNIQUE: CC and MLO views were obtained. This study was evaluated with the assistance of Computer-Aided Detection. Breast Tomosynthesis was used in interpretation. COMPARISON FILM: Yes 11/14/23 [facility] 11/12/22 [facility] FINDINGS: There are scattered areas of fibroglandular density. There are no dominant masses, suspicious micro calcifications or areas of architectural distortion. us Myranda Case MD MAMMO Fi nal Result * SDNA-FIT EXTERNAL (COLOGUARD) (02/02/2024 6:30 AM VACUUM DRUM DRIER OPERATOR) NONINV COLON CA DNA+OCC BLD SCRN STL-IMP Negative Negative 02/09/2024 11:32 PM VACUUM DRUM DRIER OPERATOR [facility] (CLIA #:[id number]) Comment: NEGATIVE TEST RESULT. A negative Cologuard [...] Cook et al, N Engl J Med 2014;370(14):6415-8944) The normal value (reference range) for this assay is negative. COLOGUARD RE-SCREENING RECOMMENDATION: Periodic colorectal cancer screening is an important part of preventive healthcare for asymptomatic individuals at average risk for colorectal cancer. Following a negative Cologuard result, the [place] Cancer Society and U.S. Multi-Society Task Force screening guidelines recommend a Cologuard re-screening interval of 3 years. References: [place] [employer] Guideline for Colorectal Cancer Screening: https://www.cancer.org/cancer/ccosv-atewvz-jtsrkh/zrsasnctw-gibmkcqaj-leuoymb/ac s-rec ommendations.html.; Claudio DK, Marifer PECK, Kathie RICHARD, Colorectal Cancer Screening: Recommendations for Physicians and Patients from the U.S. Multi-Society Task Force on Colorectal Cancer Screening , Am J Gastroenterology 2017; 112:4806-0793. TEST DESCRIPTION: Composite algorithmic analysis of stool [...] Cook et al, N Engl J Med 2014;370(14):9415-5848.) Cologuard may produce a false negative or false positive result (no colorectal cancer or precancerous polyp present at colonoscopy follow up). A negative Cologuard test result does not guarantee the absence of CRC or advanced adenoma (pre-cancer). The current Cologuard screening interval is every 3 years. ([place] Cancer Society and U.S. Multi-Society Task Force). Cologuard performance data in a 10,000 patient pivotal study using colonoscopy as the reference method can be accessed at the following location: www.Cloudian/results. Additional description of the Cologuard test process, warnings and precautions can be found at www.cologuard.com. Stool specimen (specimen) (Rectum) 02/02/2024 6:30 AM VACUUM DRUM DRIER OPERATOR 02/04/2024 12:24 PM VACUUM DRUM DRIER OPERATOR Myranda Case MD URINE Fi nal Result [facility] (CLIA #:[id number]) [place] [address], * (ABNORMAL) XR DXA BONE DENSITY 2 SITES AXIAL (01/25/2024 9:07 AM CDT) Anatomical Region Laterality Modality Spine, HIPS, HIPL, HIPR Other Impressions 01/31/2024 2:02 PM VACUUM DRUM DRIER OPERATOR Osteopenia. RECOMMENDATIONS: The National Osteoporosis Foundation recommends [...] to assess therapeutic efficacy. Essie Mayer PA-C [facility] 01/31/2024 Narrative 01/31/2024 2:02 PM VACUUM DRUM DRIER OPERATOR For Patients: Results are automatically released to your [facility] ([employer]) account once available, in compliance with federal regulations. This means that you may see your results before your provider has had a chance to review them. Please allow 2-3 business days for your provider to comment on the results. XR DXA Bone Mineral Density (BMD) EXAM LOCATION: [address] [address] PATIENT NAME: Adela Holbrook DATE OF : [...] two scanners are made by the same printing technician. PROCEDURE: Dual-energy x-ray absorptiometry performed with routine [...] Case MD DEXA Fi nal Result * ANTI HCV [[id number]] (07/22/2014 10:21 AM CDT) HEPATITIS C ANTIBODY Non-Reacti ve Non-Reacti ve 07/22/2014 4:44 PM CDT [facility] Blood specimen (specimen) BLOOD SPECIMEN / Unknown Venipuncture / Unknown 07/22/2014 10:21 AM CDT 07/22/2014 10:21 AM CDT Narrative [facility] 07/22/2014 4:44 PM CDT Antibodies to HCV not detected; does not exclude the possibility of exposure to HCV. Myranda Case MD SEND OUTS Fi nal Result [facility] 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 Veneer Sample Maker Expl 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 Healthcare Directive 04/29/2022 023 * [...] Comments Code Status Discussion: Discussed Care Teams Canal Equipment Mechanic Relationship Specialty Start Date End Date Myranda Case MD [address] [place] [address] PCP - General 08/19/05 Sage Hutchinson MD [address] [place] [address] Cardiology Cardiovascular Disease 08/31/11 Zachary Paz MD [address] [place] [address] Otolaryngology Surgery - Otolaryngology 02/15/13 Rasta Ramsey MD [address] [address] Cardiovascular Disease 11/04/21 Papa Harley MD [address] [address] Cardiovascular Disease 01/11/22 [place] [address] [place] [address] Endocrinology Endocrinology 03/19/24
--- NOTE | 2025-02-26 05:06 | ED.SOB ---
HPI - SOB/Dyspnea General Time Seen by Provider: 05:06 Date Seen: 02/26/25 Chief Complaint: Shortness of Breath/Dyspnea Stated Complaint: A Fib Time Seen by Provider: 02/26/25 05:06 Source: patient Mode of arrival: ambulatory Limitations: no limitations History of Present Illness HPI Narrative: 74-year-old female who comes in with shortness of breath. Patient notes tonight she feels like she is waking up gasping, she has had some increased shortness of breath and shortness of breath with laying down for the last couple of days, also has noticed increased lower extremity swelling. She denies chest pain, fever chills, no nausea, vomiting, or diarrhea. She is scheduled for cardioversion tomorrow morning. Related Data Home Medications ?Medication ?Instructions ?Recorded ?Confirmed apixaban 5 mg tablet (Eliquis) 5 mg PO BID 05/25/22 02/26/25 dronedarone 400 mg tablet (Multaq) 400 mg PO BID 05/25/22 02/26/25 cholecalciferol (vitamin D3) 50 50 mcg PO DAILY 02/24/24 02/26/25 mcg (2,000 unit) capsule rosuvastatin 5 mg tablet 5 mg PO DAILY 02/24/24 02/26/25 alendronate 70 mg tablet (Fosamax) 70 mg PO QWEEK 06/28/24 02/26/25 Previous Rx's ?Medication ?Instructions ?Recorded metoprolol succinate 50 mg 50 mg PO DAILY #30 tabs 02/24/24 tablet,extended release 24 hr (Toprol XL) Allergies Allergy/AdvReac Type Severity Reaction Status Date / Time iodine Allergy Verified 02/26/25 05:00 shellfish derived Allergy Verified 02/26/25 05:00 [facility] Medical History 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.72 - Dissection of iliac artery (ICD-10) Cardiomyopathy ?I42.9 - Cardiomyopathy, unspecified (ICD-10) Osteopenia ?M85.80 - Other specified disorders of bone density and structure, unspecified site (ICD-10) Diverticulosis of colon (without mention of hemorrhage) ?K57.30 - Diverticulosis of large intestine without perforation or abscess without bleeding (ICD-10) Tachycardia, unspecified ?R00.0 - Tachycardia, unspecified (ICD-10) Mitral valve disorder ?I05.9 - Rheumatic mitral valve disease, unspecified (ICD-10) Atrial fibrillation status post cardioversion ?I48.91 - Unspecified atrial fibrillation (ICD-10) Surgical History Hx of wisdom tooth extraction ?K08.409 - Partial loss of teeth, unspecified cause, unspecified class (ICD-10) Hx of mitral valve replacement ?Z95.2 - Presence of prosthetic heart valve (ICD-10) Hx of hysterectomy ?Z90.710 - Acquired absence of both cervix and uterus (ICD-10) S/P ablation of atrial fibrillation ?Z98.890 - Other specified postprocedural states (ICD-10) ?Z86.79 - Personal history of other diseases of the circulatory system (ICD-10) Social History Smoking Status: Never smoker Do you use any of these nicotine containing products: None How often do you have a drink containing alcohol: never How often do you have six or more drinks on one occasion: Never AUDIT-C Alcohol total score: 0 Non-prescribed substance use: denies use Caffeine: Yes Are you using contraception or practicing any form of control: No service: No Exam Narrative: Exam Narrative: General: Well-developed and well-nourished, no acute distress Head: Atraumatic and normocephalic Eyes: Pupils are equal reactive, extraocular motions intact, conjunctiva clear ENT: External nose and ears are normal, posterior pharynx without erythema or exudate Neck: No midline cervical tenderness, full spontaneous range of motion the neck, trachea midline, no adenopathy Heart: Tachycardic but regular Lungs: Mild increased work of breathing with bilateral crackles Abdomen: Soft, nontender, nondistended with active bowel sounds Musculoskeletal: No tenderness, deformity, bilateral lower extremity edema to the knees Neurologic: Awake, alert, and oriented x3, no gross focal neurologic deficits, cranial nerves intact as tested Psych: Mood and affect are appropriate Skin: No rashes Const: Vital Signs, click to edit/add: Vital Signs - 24 hr 02/26/25 04:53 02/26/25 05:17 02/26/25 05:30 Temperature 97.7 F Pulse Rate 107 H 101 H Pulse Rate [Right Pulse Oximeter] 108 H Respiratory Rate 24 20 Blood Pressure Blood Pressure [Le ft Upper Arm] 132/99 H Pulse Oximetry 97 96 94 Oxygen Delivery Me thod Room Air 02/26/25 05:31 02/26/25 05:32 02/26/25 05:48 Temperature Pulse Rate 98 105 H 104 H Pulse Rate [Right Pulse Oximeter] Respiratory Rate 20 21 22 Blood Pressure 117/91 H Blood Pressure [Le ft Upper Arm] Pulse Oximetry 94 90 95 Oxygen Delivery Me thod 02/26/25 06:10 Temperature Pulse Rate 106 H Pulse Rate [Right Pulse Oximeter] Respiratory Rate 18 Blood Pressure 120/98 H Blood Pressure [Le ft Upper Arm] Pulse Oximetry 93 Oxygen Delivery Me thod Course Course ED Course: Additional records reviewed: September 2024 when patient seen in the emergency department with nose bleed. 0 patch from January 2024 which showed atrial flutter but also occasional runs SVT. Additional history from: Spouse Care impacted by: Atrial fibrillation, anticoagulation, heart failure with reduced ejection fraction Testing considered but not performed: See ED course Disposition: Considered admission but discharge after significant clinical improvement and with close outpatient follow-up EKG independently interpreted by me performed at 5:03 a.m. with atrial fibrillation/flutter rate 108, normal axis, incomplete right bundle-branch block, QTC 519, QRS 109. Compared to prior of January 2024, previously seen PVCs are absent today. Patient presents today with shortness of breath and orthopnea, no new atrial fibrillation and scheduled for cardioversion tomorrow. She is on metoprolol and dronedarone as well as Eliquis which she has been taking regularly. No chest pain. On exam here, heart is tachycardic and irregular, crackles in the lungs bilaterally with pitting edema to the knees bilaterally. Concern for possible congestive heart failure, likely related to atrial fibrillation. Labs and chest x-ray ordered, consider cardioversion. Did consider bilateral lower extremity ultrasound but patient is anticoagulated and DVT is clinically unlikely. Reevaluation(s) Time of Reevaluation #1: 05:57 Reevaluation #1: Chest x-ray independently interpreted by me with cardiomegaly and by interstitial edema to. Labs with normal CBC. Will discuss with Cardiology. As patient has cardioversion scheduled for tomorrow, would consider diuresis and follow-up is scheduled for that. If patient did not have cardioversion scheduled, would consider urgent cardioversion in the emergency department. I did review patient's most recent echocardiogram from March 2024, ejection fraction 52% with normal right ventricular function. Time of Reevaluation #2: 06:19 Reevaluation #2: Care discussed with Dr. South, cardiology who agrees with plan for diuresis and to attend scheduled cardioversion tomorrow. Labs independently interpreted by me with BNP 4070 consistent with clinical exam and x-ray findings Repeat EKG independently interpreted by me performed at 6:15 a.m. demonstrates atrial flutter with 3-1 AV block, incomplete right bundle-branch block, rate 106, GA 194, QTC 499, QRS 98. Compared to prior of earlier today, no change. Time of Reevaluation #3: 06:34 Reevaluation #3: Patient has been up to the bathroom twice he already after Lasix, stable for discharge. Vital Signs Vital signs: Initial Vital Signs Temperature 97.7 F 02/26/25 04:53 Temperature Source Temporal Artery Scan 02/26/25 04:53 Pulse Rate 108 H 02/26/25 04:53 Respiratory Rate 24 02/26/25 04:53 Blood Pressure 132/99 H 02/26/25 04:53 Blood Pressure Mean 110 H 02/26/25 04:53 Blood Pressure Position Sitting 02/26/25 04:53 Pulse Oximetry 97 02/26/25 04:53 Oxygen Delivery Method Room Air 02/26/25 04:53 Vital Signs Temperature 97.7 F 02/26/25 04:53 Pulse Rate 108 H 02/26/25 04:53 Respiratory Rate 24 02/26/25 04:53 Blood Pressure 132/99 H 02/26/25 04:53 Pulse Oximetry 97 02/26/25 04:53 Oxygen Delivery Method Room Air 02/26/25 04:53 Temperature 97.7 F 02/26/25 04:53 Pulse Rate 106 H 02/26/25 06:10 Respiratory Rate 18 02/26/25 06:10 Blood Pressure 120/98 H 02/26/25 06:10 Pulse Oximetry 93 02/26/25 06:10 Oxygen Delivery Method Room Air 02/26/25 04:53 Medications Administered Medications: Generic Name Dose Route Start Last Admin Trade Name Freq PRN Reason Stop Dose Admin Furosemide 40 mg 02/26/25 06:02 02/26/25 06:10 Furosemide 10 Mg/Ml Inj IVP 02/26/25 06:03 40 mg ONCE ONE Administration MDM - SOB/Dyspnea Lab Data Labs: Lab Results 02/26/25 Range/Units 05:15 WBC 4.36 L (4.50-11.00) K/uL RBC 4.19 (4.00-5.20) m/uL Hgb 12.1 (12.0-16.0) gm/dL Hct 38.3 (33.0-51.0) % MCV 91 (80-100) fL MCH 29 (26-34) pg MCHC 32 (32-36) gm/dL RDW Coeff of Kalina 15.3 (11.5-15.5) % Plt Count 175 (140-440) K/uL Neut % (Auto) 51.0 (42.0-72.0) % Lymph % (Auto) 33.0 (20-44) % Valley % (Auto) 10.6 (0.0-11.0) % Eos % (Auto) 5.0 (0.0-7.0) % Baso % (Auto) 0.2 (0.0-3.0) % Neut # (Auto) 2.20 (1.7-7.0) K/uL Lymph # (Auto) 1.40 (0.90-2.90) K/uL Valley # (Auto) 0.50 (0.00-0.90) K/UL Eos # (Auto) 0.20 (0.00-0.50) K/uL Baso # (Auto) 0.00 (0.00-0.30) K/uL Abs Immat Gran (auto) 0.00 (0.00-0.30) K/uL Imm/Tot Granulo (auto) 0.2 % Sodium 138 (135-149) mmol/L Potassium 4.1 (3.6-5.1) mmol/L Chloride 104 (96-114) mmol/L Carbon Dioxide 25 (20-32) mmol/L Anion Gap 9 (7-15) mEq/L BUN 18 (7-30) mg/dL Creatinine 1.0 (0.5-1.5) mg/dL Estimated Creat Clear 39.47 Estimated GFR 59 ml/min Glucose 99 (60-115) mg/dL Calcium 8.3 L (8.4-10.6) mg/dL Magnesium 2.1 (1.5-2.6) mg/dL NT-Pro-B Natriuret Pep 4070 H (See Note) pg/mL Discharge Plan Discharge Clinical Impression: Paroxysmal atrial fibrillation, Anticoagulated on Eliquis, Acute heart failure with reduced ejection fraction (HFrEF) Patient Disposition: Home, Self-Care Condition: Improved Instructions: Heart Failure (ED), A-fib (Atrial Fibrillation) (ED) Additional Instructions: Follow-up with cardiology tomorrow as scheduled for cardioversion Activity Level: Activity as Tolerated Discharge Diet: Heart Healthy (2 gm sodium, low fat) Prescriptions: No Action Multaq 400 mg tablet 400 mg PO BID Eliquis 5 mg tablet 5 mg PO BID alendronate [Fosamax] 70 mg tablet 70 mg PO QWEEK rosuvastatin 5 mg tablet 5 mg PO DAILY cholecalciferol (vitamin D3) 50 mcg (2,000 unit) capsule 50 mcg PO DAILY metoprolol succinate [Toprol XL] 50 mg tablet extended release 24 hr 50 mg PO DAILY Qty: 30 0RF Follow Up/Referrals: Myranda Case MD [Primary Care Provider, Family Practice] Stand Alone Forms: [employer] Info Instructions
--- NOTE | 2025-02-26 05:26 | CRLHL7_ITS ---
For Patients: As a result of the Century Cures Act, medical imaging exams and procedure reports are released immediately into your electronic medical record. You may view this report before your referring provider. If you have questions, please contact your health care provider. INDICATION: Dyspnea COMPARISON: January 01, 2024 TECHNIQUE: PA and lateral views of the chest were acquired FINDINGS: TUBES AND LINES: None. HEART AND MEDIASTINUM: Severe cardiomegaly. Sternotomy. Similar appearance to the prior study. LUNGS AND PLEURAL SPACES: Abnormal interstitial with prominent septal lines likely due to pulmonary interstitial edema. No pleural effusion or pneumothorax OSSEOUS STRUCTURES: Age-appropriate appearance. No acute focal finding. IMPRESSION: Pulmonary interstitial edema. Unchanged significant enlargement of the heart. Sternotomy. Dictated by Rodolfo Hill MD @ 02/26/2025 5:57:33 AM (Electronically Signed)
[2025-02-26 05:39] LABS: Hematocrit* 38.3 % (33.0-51.0); Hemoglobin* 12.1 gm/dL (12.0-16.0); Immature Granulocytes Pct Auto 0.2 %; Mean Corpuscular HGB Conc 32 gm/dL (32-36); Mean Corpuscular Hemoglobin 29 pg (26-34); Mean Corpuscular Volume 91 fL (80-100); RDW Coefficient of Variation % 15.3 % (11.5-15.5); Red Blood Count* 4.19 m/uL (4.00-5.20); White Blood Count* 4.36 K/uL (4.50-11.00)
[2025-02-26 05:51] LABS: Immature Granulocytes Abs Auto 0.00 K/uL (0.00-0.30); Lymphocytes Absolute Auto 1.40 K/uL (0.90-2.90); Slide Review Reflex No
[2025-02-26 05:53] LABS: Chloride* 104 mmol/L (96-114); Potassium* 4.1 mmol/L (3.6-5.1); Sodium* 138 mmol/L (135-149)
[2025-02-26 05:56] LABS: Anion Gap 9 mEq/L (7-15); Blood Urea Nitrogen* 18 mg/dL (7-30); Calcium* 8.3 mg/dL (8.4-10.6); Carbon Dioxide* 25 mmol/L (20-32); Creatinine* 1.0 mg/dL (0.5-1.5); Est. Creatinine Clearance* 39.47; Estimated Glomerular Filt Rate 59 ml/min; Glucose* 99 mg/dL (60-115)
[2025-02-26] MEDS: FUROSEMIDE 10 MG/ML inj 40 MG IVP (06:10)
[2025-02-26 06:11] LABS: NT Pro B Type NatriureticPept* 4070 pg/mL (See Note)
== END 2025-02-26 07:26 | disposition home or self-care (01) ==
PROVIDERS: Emergency Provider Family Medicine; PCP Family Medicine
DX: I48.0 Paroxysmal atrial fibrillation (principal); I50.20 Unspecified systolic (congestive) heart failure; Z79.01 Long term (current) use of anticoagulants
CPT/HCPCS: 36415; 71046; 80048; 83735; 83880; 85025; 93005; 96374; 99285; J1938